=== PATIENT | female | born 1960 | race Asian ===

== ENCOUNTER 2023-12-08 19:12 | Outpatient (REF) | payer OTHER, SELFPAY ==
[2023-12-15 10:09] LABS: Age Gdln ACOG Testing Note (.); HPV Aptima Negative (Negative); IGP, Aptima HPV, rfx 16/18,45 Note (.)
== END 2023-12-08 19:13 | disposition home or self-care (01) ==
LOC: LAB 19:12
PROVIDERS: PCP Family Medicine; Visit Provider Physician Assistant
DX: Z01.419 Encounter for gynecological examination (general) (routine) without abnormal findings (principal)
CPT/HCPCS: 87624; G0145

== ENCOUNTER 2023-12-15 14:02 | Outpatient (OUT) | payer OTHER, SELFPAY ==
--- NOTE | 2023-12-15 14:06 | MM_ITS ---
Patient Name: JAVIER HOOVER MR#: [id number] : 1960 Exam Date: 12/15/2023 Ordering Doctor: DR Abdi Mora . RADIOLOGY REPORT PROCEDURE: MM TOMOSYNTHESIS SCREENING BI COMPARISON: MG MAMM SCREEN 3D ZEINAB CAD, 07/23/2021. MG MAMM SCREEN 3D ZEINAB CAD, 12/02/2022. INDICATIONS: screening Calculator Name NCI Breast Cancer Risk Assessment Tool 5 Year Breast Cancer Risk 0.50% Lifetime Breast Cancer Risk 1.80% Personal Breast Cancer No Personal Ovarian Cancer No Treatments None Family Cancers Mother with ovarian cancer at age 57. LOCATION: [facility] BREAST COMPOSITION: Heterogeneously dense,which may obscure small masses. FINDINGS: DIAGNOSTIC CATEGORY 2--BENIGN FINDING. NO CHANGE FROM COMPARISON. Scattered benign-appearing lymph nodes are present. Scattered benign-appearing calcifications are present. RIGHT BREAST: No significant suspicious finding. LEFT BREAST: No significant suspicious finding. RECOMMENDATIONS: ROUTINE MAMMOGRAM AND CLINICAL EVALUATION IN 12 MONTHS. PLEASE NOTE: A NORMAL MAMMOGRAM DOES NOT EXCLUDE THE POSSIBILITY OF BREAST CANCER. A CLINICALLY SUSPICIOUS PALPABLE LUMP SHOULD BE BIOPSIED. Dictated by: Lio Zuluaga MD on 12/15/2023 at 15:26 Approved by: Lio Zuluaga MD on 12/15/2023 at 15:27
--- OUTSIDE RECORDS SUMMARY | 2023-12-15 14:11 | XMS_ITS | CCD ---
Author Name Unknown Address [address] [place] [address] Organization [facility] Care Team Providers Care Dining Room Supervisor Name Role Phone PERLA ., LEXI Admitting Unavailable PERLA ., LEXI Attending Unavailable DRIFTING, DR BANEGAS Primary Care Unavailable NIC, DR MELISSA Matta Consulting Unavailable PERLA ., LEXI Consulting Unavailable CHRIS, DR BANEGAS Admitting Unavailable HOUSE, DR BANEGAS Attending Unavailable DRIFTING, DR BANEGAS Primary Care Unavailable DRIFTING, DR BANEGAS Consulting Unavailable PERLA ., LEXI Admitting Unavailable PERLA ., LEXI Attending Unavailable DRIFTING, DR BANEAGS Primary Care Unavailable PERLA ., LEXI Consulting Unavailable Sejal Davidson Unavailable LEXI DUNCAN Attending Unavailable Medications Current Medications Medication Drug Class(es) Dates Sig (Normalized) Sig (Original) cefdinir 300 mg oral capsule (1 source) Cephalosporin Antibacterial Start: 07-28-2023 take 1 capsule by mouth every twelve hours Cefdinir 300 MG 1 tablet Orally twice a day for 7 days Jul, Active fluticasone propionate 0.05 mg/actuat metered dose nasal spray (1 source) Corticosteroid Start: 07-28-2023 take 2 spray(s) nasal route once daily Fluticasone Propionate 50 MCG/ACT 2 sprays in each nostril Nasally Once a day for 14 days Jul, Active metFORMIN hydrochloride 500 mg oral tablet (1 source) Biguanide take 1 tablet by mouth twice daily metFORMIN HCl 500 MG TAKE 1 TABLET BY MOUTH TWICE DAILY Oral for 90 Days Active Problems Active Problems Problem Classification Problem Date Documented Date Episodic/Chronic Diabetes mellitus without complication (1 source) Type 2 diabetes mellitus without complications; Translations: [TYPE 2 DM WITHOUT COMPLICATIONS] Onset: 08-12-2022 Chronic Otitis media and related conditions (1 source) Unspecified nonsuppurative otitis media, right ear Episodic Past or Other Problems Problem Classification Problem Date Documented Date Episodic/Chronic Immunizations and screening for infectious disease (1 source) Encounter for screening for human papillomavirus (HPV); Translations: [ENC SCREENING HUMAN PAPILLOMAVIRUS] Onset: 11-27-2022 Episodic Other screening for suspected conditions (not mental disorders or infectious disease) (8 sources) Encounter for screening mammogram for malignant neoplasm of breast; Translations: [Encounter for screening for malignant neoplasm of cervix] Onset: 11-24-2022 Episodic Residual codes; unclassified (1 source) Family history of malignant neoplasm of ovary; Translations: [FAM HX MALIGNANT NEOPLASM OVARY] Onset: 12-03-2022 Episodic Results Test Name Value Interpretation Reference Range Facility MG MAMM SCREEN 3D ZEINAB CADon 12-02-2022 MG MAMM SCREEN 3D ZEINAB CAD Patient: JAVIER HOOVER Exam Date: 12/02/2022 : 1960 Gender:F Ordering : ALEJO DUNCAN . Admission #: [id number] Family : Order #: [id number] CLICK HERE TO VIEW EXAM RADIOLOGY REPORT PROCEDURE: MAMMOGRAM SCREENING 3D BILATERAL CAD COMPARISON: MG MAMM SCREEN 3D ZEINAB CAD, 07/23/2021. MG MAMM SCREEN ZEINAB W CAD, 07/07/2020. MG MAMM SCREEN ZEINAB W CAD, 06/26/2019. MG MAMM ZEINAB SCRN W CAD DIG, 11/22/2011. INDICATIONS: Screening mammography Calculator Name NCI Breast Cancer Risk Assessment Tool 5 Year Breast Cancer Risk 0.50% Lifetime Breast Cancer Risk 1.90% Personal Breast Cancer No Personal Ovarian Cancer No Treatments None Family Cancers Mother with ovarian cancer at age 57. LOCATION: [facility] BREAST COMPOSITION: Heterogeneously dense,which may obscure small masses. FINDINGS: DIAGNOSTIC CATEGORY 2--BENIGN FINDING: RIGHT BREAST: No significant suspicious finding. Stable, chronic asymmetry within lower-inner quadrant consistent with area of fibroglandular tissue. No significant change has occurred. LEFT BREAST: No significant suspicious finding. No significant change has occurred. RECOMMENDATIONS: ROUTINE MAMMOGRAM AND CLINICAL EVALUATION IN 12 MONTHS. PLEASE NOTE: A NORMAL MAMMOGRAM DOES NOT EXCLUDE THE POSSIBILITY OF BREAST CANCER. A CLINICALLY SUSPICIOUS PALPABLE LUMP SHOULD BE BIOPSIED. Dictated by: Melissa Hoffmann M.D. on 12/02/2022 at 13:37 Approved by: Melissa Hoffmann M.D. on 12/02/2022 at 13:41 Normal [facility] PAP ACOG PANEL 2: 30 to 65on 11-26-2022 . . Normal [facility] Comment on above: Result Comment: Perf ormed at: WB Performed By: #### [id number] #### [facility] [address] [place] [address] Dr. Sulma Parsons Age Gdln ACOG Testing 30-65 Normal [facility] Comment on above: Performed By: #### [id number] #### [facility] [address] [address] [address] Sulma Parsons DIAGNOSIS: Comment Normal [facility] Comment on above: Result Comment: NEGA TIVE FOR INTRAEPITHELIAL LESION OR MALIGNANCY. CELLULAR CHANGES ASSOCIATED WITH ATROPHY ARE PRESENT. Performed at: WB Performed By: #### [id number] #### [facility] [address] [address] [address] Sulma Parsons HPV Aptima Negative Normal Negative [facility] Comment on above: Result Comment: This nucleic acid amplification test detects fourteen high-risk HPV types (16,18,31,33,35,39,45,51,52,56,58,59,66,68) without differentiation. Performed at: =G Performed By: #### [id number] #### [facility] [address] [address] [address] Sulma Parsons HPV Genotype Reflex Comment Normal [facility] Comment on above: Result Comment: Crit eria not met, HPV Genotype not performed. Performed at: WB Performed By: #### [id number] #### [facility] [address] [address] [address] Sulma Parsons Methodology: Comment Normal [facility] Comment on above: Result Comment: This liquid based ThinPrep(R) pap test was screened with the use of an image guided system. Performed at: WB Performed By: #### [id number] #### [facility] [address] [place] [address] Dr. Sulma Parsons Note: Comment Normal [facility] Comment on above: Result Comment: The Pap smear is a screening test designed to aid in the detection of premalignant and malignant conditions of the uterine cervix. It is not a diagnostic procedure and should not be used as the sole means of detecting cervical cancer. Both false-positive and false-negative reports do occur. . Performed at: WB Performed By: #### [id number] #### [facility] [address] [place] [address] Dr. Sulma Parsons Performed by: Comment Normal [facility] Comment on above: Result Comment: Tanesha Stauffer, Bulkhead Carpenter (ASCP) Performed at: WB Performed By: #### [id number] #### [facility] [address] [place] [address] Dr. Sulma Parsons Specimen adequacy: Comment Normal [facility] Comment on above: Result Comment: Sati sfactory for evaluation. Endocervical component may not be distinguished in cases of atrophy. Performed at: WB Performed By: #### [id number] #### [facility] [address] [place] [address] Dr. Sulma Parsons CBC AUTO DIFFon 08-10-2022 BASO # 0.0 103/ul Normal 0.0-0.1 [facility] Comment on above: Performed By: #### C BC #### [facility] [address] [place] [address] Dr. Sulma Parsons Basophils/100 WBC (Bld) 0.3 % Normal 0.2-2.0 [facility] Comment on above: Performed By: #### C BC #### [facility] [address] [place] [address] Dr. Sulma Parsons EO # 0.1 103/ul Normal 0.0-0.7 [facility] Comment on above: Performed By: #### C BC #### [facility] [address] [place] [address] Dr. Sulma Parsons Eosinophils/100 WBC (Bld) 1.7 % Normal 0.9-7.0 [facility] Comment on above: Performed By: #### C BC #### [facility] [address] [place] [address] Dr. Sulma Parsons Erythrocyte distribution width (RBC) [Ratio] 14.1 % Normal 11.0-15.0 [facility] Comment on above: Performed By: #### C BC #### [facility] [address] [place] [address] Dr. Sulma Parsons Hematocrit (Bld) [Volume fraction] 38.8 % Normal 36.0-48.0 [facility] Comment on above: Performed By: #### C BC #### [facility] [address] [place] [address] Dr. Sulma Parsons Hemoglobin (Bld) [Mass/Vol] 12.3 g/dL Normal 12.0-16.0 [facility] Comment on above: Performed By: #### C BC #### [facility] [address] [place] [address] Dr. Sulma Parsons IG # 0.02 10e3/ul Normal 0.00-0.03 [facility] Comment on above: Performed By: #### C BC #### [facility] [address] [place] [address] Dr. Sulma Parsons IG % 0.3 % Normal 0.0-0.5 [facility] Comment on above: Performed By: #### C BC #### [facility] [address] [place] [address] Dr. Sulma Parsons LYMPH # 2.7 103/ul Normal 1.2-3.8 [facility] Comment on above: Performed By: #### C BC #### [facility] [address] [place] [address] Dr. Sulma Parsons Lymphocytes/100 WBC (Bld) 45.9 % Normal 20.5-60.0 [facility] Comment on above: Performed By: #### C BC #### [facility] [address] [place] [address] Dr. Sulma aPrsons MANUAL DIFF REQ NO Normal [facility] Comment on above: Performed By: #### C BC #### [facility] [address] [place] [address] Dr. Sulma Parsons MCH (RBC) [Entitic mass] 30.6 pg Normal 26.7-34.0 [facility] Comment on above: Performed By: #### C BC #### [facility] [address] [address] [address] Sulma Parsons MCHC (RBC) [Mass/Vol] 31.7 g/dL Normal 29.9-35.2 [facility] Comment on above: Performed By: #### C BC #### [facility] [address] [address] [address] Sulma Parsons MCV (RBC) [Entitic vol] 96.5 fL Normal 81.0-99.0 [facility] Comment on above: Performed By: #### C BC #### [facility] [address] [address] [address] Sulma Parsons MONO # 0.4 103/ul Normal 0.3-0.8 [facility] Comment on above: Performed By: #### C BC #### [facility] [address] [place] [address] Dr. Sulma Parsons Monocytes/100 WBC (Bld) 6.6 % Normal 1.7-12.0 [facility] Comment on above: Performed By: #### C BC #### [facility] [address] [place] [address] Dr. Sulma Parsons NEUT # 2.7 103/ul Normal 1.4-6.5 [facility] Comment on above: Performed By: #### C BC #### [facility] [address] [place] [address] Dr. Sulma Parsons Neutrophils/100 WBC (Bld) 45.2 % Normal 43.0-75.0 [facility] Comment on above: Performed By: #### C BC #### [facility] [address] [place] [address] Dr. Sulma Parsons Platelet mean volume (Bld) [Entitic vol] 11.9 fL Normal 9.5-13.5 [facility] Comment on above: Performed By: #### C BC #### [facility] [address] [place] [address] Dr. Sulma Parsons PLT 119 103/ul Critically low 150-450 [facility] Comment on above: Performed By: #### C BC #### [facility] [address] [address] [address] Sulma Parsons RBC 4.02 106/ul Critically low 4.20-5.40 [facility] Comment on above: Performed By: #### C BC #### [facility] [address] [address] [address] Sulma Parsons WBC 6.0 103/ul Normal 4.0-11.0 [facility] Comment on above: Performed By: #### C BC #### [facility] [address] [place] [address] Dr. Sulma Parsons GLYCOHEMOGLOBIN A1Con 2021 ADA RECOMMENDATION SEE BELOW Normal [facility] Comment on above: Result Comment: ADA RECOMMENDED LIMIT 4.0 - 6.0 ADA THERAPEUTIC TARGET < 7.0 ACTION SUGGESTED > 7.0 Performed By: #### A 1C #### [facility] [address] [place] [address] Dr. Sulma Parsons Glucose [Mass/Vol] 128 mg/dL Normal [facility] Comment on above: Performed By: #### A 1C #### [facility] [address] [place] [address] Dr. Sulma Parsons HbA1c (Bld) [Mass fraction] 6.1 % Normal 4.5-6.2 [facility] Comment on above: Performed By: #### A 1C #### [facility] [address] [place] [address] Dr. Sulma Parsons LIPID PROFILEon 08-10-2022 CHOL-HDL RATIO NORM SEE BELOW Normal [facility] Comment on above: Result Comment: 3.3 - 4.4 LOW RISK 4.4 - 7.1 AVERAGE RISK 7.1 - 11.0 MODERATE RISK >11.0 HIGH RISK Performed By: #### C MP, LIPID #### [facility] [address] [place] [address] Dr. Sulma Parsons Cholesterol [Mass/Vol] 205 mg/dL Critically high <=200 [facility] Comment on above: Performed By: #### C MP, LIPID #### [facility] [address] [place] [address] Dr. Sulma Parsons Cholesterol in HDL [Mass/Vol] 80 mg/dL Critically high 40-60 [facility] Comment on above: Performed By: #### C MP, LIPID #### [facility] [address] [address] [address] Sulma Parsons Cholesterol in LDL [Mass/Vol] 101.8 mg/dL Normal [facility] Comment on above: Performed By: #### C MP, LIPID #### [facility] [address] [address] [address] Sulma Parsons Cholesterol.total/Cho lesterol in HDL [Mass ratio] 2.6 {ratio} Normal [facility] Comment on above: Performed By: #### C MP, LIPID #### [facility] [address] [place] [address] Dr. Sulma Parsons HDL NORMAL > or = 60 mg/dl - LO W CARDIOVASCULAR RISK <40 mg/dl - HIGH CARDIOVASCULAR RISK Normal [facility] Comment on above: Performed By: #### C MP, LIPID #### [facility] [address] [place] [address] Dr. Sulma Parsons LDL CALC NORMAL SEE BELOW Normal [facility] Comment on above: Result Comment: <100 mg/dl OPTIMAL 100 - 129 mg/dl NEAR OR ABOVE OPTIMAL 130 - 159 mg/dl BORDERLINE HIGH 160 - 189 mg/dl HIGH >190 mg/dl VERY HIGH Performed By: #### C MP, LIPID #### [facility] [address] [address] [address] Sulma Parsons Triglyceride [Mass/Vol] 116 mg/dL Normal <=150 [facility] Comment on above: Performed By: #### C MP, LIPID #### [facility] [address] [address] [address] Sulma Parsons VLDL CALC 23.2 mg/dL Normal [facility] Comment on above: Performed By: #### C MP, LIPID #### [facility] [address] [address] [address] Sulma Parsons MICROALBUMIN, RAND URon 10-0 mALB 3.6 mg/L Normal <=30.0 [facility] Comment on above: Performed By: #### M ALBR #### [facility] [address] [address] [address] Sulma Parsons PROF 14(COMP METB)on 022 Albumin [Mass/Vol] 3.6 g/dL Normal 3.4-5.0 [facility] Comment on above: Performed By: #### C MP, LIPID #### [facility] [address] [place] [address] Dr. Sulma Parsons Albumin/Globulin [Mass ratio] 1.0 {ratio} Normal [facility] Comment on above: Performed By: #### C MP, LIPID #### [facility] [address] [place] [address] Dr. Sulma Parsons ALP [Catalytic activity/Vol] 68 U/L Normal 46-116 [facility] Comment on above: Performed By: #### C MP, LIPID #### [facility] [address] [place] [address] Dr. Sulma Parsons ALT [Catalytic activity/Vol] 20 U/L Normal 14-59 [facility] Comment on above: Performed By: #### C MP, LIPID #### [facility] [address] [place] [address] Dr. Sulma Parsons Anion gap [Moles/Vol] 14.2 mmol/L Normal [facility] Comment on above: Performed By: #### C MP, LIPID #### [facility] [address] [place] [address] Dr. Sulma Parsons AST [Catalytic activity/Vol] 18 U/L Normal 15-37 [facility] Comment on above: Performed By: #### C MP, LIPID #### [facility] [address] [place] [address] Dr. Sulma Parsons Bilirubin [Mass/Vol] 0.4 mg/dL Normal 0.2-1.0 [facility] Comment on above: Performed By: #### C MP, LIPID #### [facility] [address] [place] [address] Dr. Sulma Parsons Calcium [Mass/Vol] 8.6 mg/dL Normal 8.5-10.1 [facility] Comment on above: Performed By: #### C MP, LIPID #### [facility] [address] [address] [address] Sulma Parsons Chloride [Moles/Vol] 103 mmol/L Normal 98-107 [facility] Comment on above: Performed By: #### C MP, LIPID #### [facility] [address] [address] [address] Sulma Parsons CO2 [Moles/Vol] 23.9 mmol/L Normal 21.0-32.0 [facility] Comment on above: Performed By: #### C MP, LIPID #### [facility] [address] [address] [address] Sulma Parsons Creatinine [Mass/Vol] 0.77 mg/dL Normal 0.55-1.02 [facility] Comment on above: Performed By: #### C MP, LIPID #### [facility] [address] [address] [address] Sulma Parsons EGFR-AF BHUTANESE >60 Normal >=60 [facility] Comment on above: Performed By: #### C MP, LIPID #### [facility] [address] [address] [address] Sulma Parsons EGFR-NON AF BHUTANESE >60 Normal >=60 [facility] Comment on above: Performed By: #### C MP, LIPID #### [facility] [address] [address] [address] Sulma Parsons Globulin (S) [Mass/Vol] 3.7 g/dL Normal [facility] Comment on above: Performed By: #### C MP, LIPID #### [facility] [address] [address] [address] Sulma Parsons Glucose [Mass/Vol] 93 mg/dL Normal 74-[address] [facility] Comment on above: Performed By: #### C MP, LIPID #### [facility] [address] [address] [address] Sulma Parsons Potassium [Moles/Vol] 4.1 mmol/L Normal 3.5-5.1 [facility] Comment on above: Performed By: #### C MP, LIPID #### [facility] [address] [address] [address] Sulma Parsons Protein [Mass/Vol] 7.3 g/dL Normal 6.4-8.2 [facility] Comment on above: Performed By: #### C MP, LIPID #### [facility] [address] [address] [address] Sulma Parsons Sodium [Moles/Vol] 137 mmol/L Normal 136-145 [facility] Comment on above: Performed By: #### C MP, LIPID #### [facility] [address] [address] [address] Sulma Parsons Urea nitrogen [Mass/Vol] 19.0 mg/dL Critically high 7.0-18.0 [facility] Comment on above: Performed By: #### C MP, LIPID #### [facility] [address] [address] [address] Sulma Parsons Urea nitrogen/Creatinine [Mass ratio] 24.7 mg/mg Normal [facility] Comment on above: Performed By: #### C MP, LIPID #### [facility] [address] [address] [address] Sulma Parsons Vital Signs Date Time Vital Sign Value Performing Clinician Facility 07-28-2023 09:10-0400 Body height 157.48 cm Sejal Davidson Other [email or web address] Other 07-28-2023 09:10-0400 Body mass index (BMI) [Ratio] 30.32 kg/m2 Sejal Davidson Other [email or web address] Other 07-28-2023 09:10-0400 Body temperature 97.9 [degF] Sejal Davidson Other [email or web address] Other 07-28-2023 09:10-0400 Body weight 75.21 kg Sejal Davidson Other [email or web address] Other 07-28-2023 09:10-0400 Diastolic blood pressure 80 mm[Hg] Sejal Davidson Other [email or web address] Other 07-28-2023 09:10-0400 Respiratory rate 18 /min Sejal Davidson Other [email or web address] Other 07-28-2023 09:10-0400 SaO2% (BldA) [Mass fraction] 98 % Sejal Davidson Other [email or web address] Other 07-28-2023 09:10-0400 Systolic blood pressure 126 mm[Hg] Sejal Davidson Other [email or web address] Other Encounters Encounter Date Encounter Type Care Provider Facility Start: 12-08-2023 End: 12-08-2023 ambulatory LEXI DUNCAN Not Available Start: 07-28-2023 End: 07-28-2023 ambulatory Sejal Davidson Other [email or web address] Other Start: 07-28-2023 Office outpatient ne w 20 minutes Sejal Davidson [facility] Start: 12-02-2022 End: 12-03-2022 ambulatory LEXI DUNCAN . Facility:[facility] Start: 11-24-2022 End: 11-24-2022 ambulatory LEXI DUNCAN . Facility:[facility] Start: 08-12-2022 Encounter for genera l adult medical examination without abnormal findings DR MAKENZIE PEREZ [facility] Start: 08-10-2022 End: 08-11-[address] MAKENZIE PEREZ Facility:[facility] Start: 08-10-2022 End: 08-11-2022 Encounter for general adult medical examination without abnormal findings DR MAKENZIE PEREZ Facility:[facility] Payers Date Payer Category Payer Unknown [id number] 2.16.84 [id number] 1960 Unknown [id number] 2.16.84 [id number] 1960 Unknown [id number] 2.16.84 [id number] 1960 Unknown [id number] 2.16.84 [id number] 1959 Unknown [id number] 1959 Unknown [id number] Social History Date Type Detail Facility Unknown if ever smoked [email or web address] Other Sex Assigned At Sex Assigned At Bir th [email or web address] Other Evaluation note 07-28-2023 Note Date & Type Note Facility 07-28-2023 Evaluation note Encounter Date Diagnosis Assessment Notes Jul, Right otitis media with effusion (ICD-10 - H65.91) Discussed exam and history consistent with otitis media. Will treat with cefdinir. Finish entire course. May use Tylenol and ibuprofen for any discomfort. Discussed other upper respiratory symptoms remain consistent with viral URI. Discussed typical duration 7 to 12 days. May continue symptomatic treatment such as DayQuil/NyQuil, Flonase. Follow-up with PCP in 5 to 6 days for recheck, sooner if significantly worsening symptoms or continuing fever. Patient/Parent verbalized understanding of treatment plan. [email or web address] Other History general Narrative - Reported Note Date & Type Note Facility History general Narrative - Reported Type Medical History diabetic [email or web address] Other Summary Purpose Family History No Family History Records FoundNo Family History Records Found Advance Directives No Advanced Directives Records FoundNo Advanced Directives Records Found Additional Source Comments INFORMATION SOURCE (unrecogn ized section and content) DATE CREATED AUTHOR 03/22/2023 [facility] DATE CREATED AUTHOR AUTHOR'S ORGANIZ ATION 12/09/2023 [facility] EPIC REASON FOR VISIT (unrecogniz ed section and content) EARACHE FOR RECORDS PERTAINING TO PATIENTS WHO ARE OR HAVE BEEN ENROLLED IN A CHEMICAL DEPENDENCY/SUBSTANCEABUSE PROGRAM, SOME INFORMATION MAY BE OMITTED. This clinical summary was aggregated from multiple sources. Caution should be exercised in using it in the provision of clinical care. This summary normalizes information from multiple sources, and as a consequence, information in this document may materially change the coding, format and clinical context of patient data. In addition, data may be omitted in some cases. CLINICAL DECISIONS SHOULD BE BASED ON THE PRIMARY CLINICAL RECORDS. [facility]. provides no warranty or guarantee of the accuracy or completeness of information in this document.
== END 2023-12-15 14:03 | disposition home or self-care (01) ==
LOC: MAMMO 14:03
PROVIDERS: PCP Family Medicine; Visit Provider Obstetrics & Gynecology
DX: Z12.31 Encounter for screening mammogram for malignant neoplasm of breast (principal); Z80.41 Family history of malignant neoplasm of ovary
CPT/HCPCS: 77063; 77067

== ENCOUNTER 2024-12-19 19:34 | Outpatient (REF) | payer OTHER, SELFPAY ==
--- OUTSIDE RECORDS SUMMARY | 2024-12-19 19:36 | XMS_ITS | CCD ---
Author Organization [facility] Care Team Providers Care [employer] Name Role Phone PERLA ., MARTHA Admitting Unavailable PERLA ., MARTHA Attending Unavailable CHRIS, DR BANEGAS Primary Care Unavailable NIC, DR VIGNESH Matta Consulting Unavailable PERLA ., MARTHA Consulting Unavailable CHRIS, DR BANEGAS Admitting Unavailable CHRIS, DR BANEGAS Attending Unavailable HOUSE, DR BANEGAS Primary Care Unavailable HOUSE, DR BANEGAS Consulting Unavailable PERLA ., MARTHA Admitting Unavailable PERLA ., MARTHA Attending Unavailable CHRIS, DR BANEGAS Primary Care Unavailable PERLA ., MARTHA Consulting Unavailable Sejal Davidson Unavailable Uli Redding MD Primary Care Provider ULI REDDING Attending Unavailable MARTHA DUNCAN Attending Unavailable DOTTIE BRIONES Attending Unavailable MONIE NEAL Attending Unavailable KENIA KAUR Attending Unavailable ULI REDDING Attending Unavailable Medications Current Medications Medication Drug Class(es) Dates Sig (Normalized) Sig (Original) Blood Glucose Monitoring Suppl (D-Care Glucometer) w/Device kit (12 sources) Start: 10-04-2023 Blood Glucose Monitoring Suppl (D-Care Glucometer) w/Device kit Indications: Type 2 diabetes mellitus without complication, without long-term current use of insulin ([facility]) 1 Device in the morning. 1 kit 10/04/2023 Active cefdinir 300 mg oral capsule (1 source) Cephalosporin Antibacterial Start: 07-28-2023 take 1 capsule by mouth every twelve hours Cefdinir 300 MG 1 tablet Orally twice a day for 7 days Jul, Active fexofenadine hydrochloride 180 mg oral tablet (12 sources) Histamine-1 Receptor Antagonist Start: 05-24-2023 take 1 tablet by mouth in the morning as needed Allergy Relief 180 MG tablet Take 180 mg by mouth in the morning. PRN. 05/24/2023 Active fluticasone propionate 0.05 mg/actuat metered dose nasal spray (1 source) Corticosteroid Start: 07-28-2023 take 2 spray(s) nasal route once daily Fluticasone Propionate 50 MCG/ACT 2 sprays in each nostril Nasally Once a day for 14 days Jul, Active lisinopril 5 mg oral tablet (5 sources) Angiotensin Converting Enzyme Inhibitor Start: 10-08-2024 End: 10-08-2025 take 1 tablet by mouth once daily lisinopril 5 MG tablet Indications: Primary hypertension (CMS/HCC) Take 1 tablet (5 mg) by mouth Daily 30 tablet 11 10/08/2024 10/08/2025 Active metFORMIN hydrochloride 500 mg oral tablet (11 sources) Biguanide Start: 08-29-2024 End: 08-29-2025 take 1 tablet by mouth in the morning metFORMIN (Glucophage) 500 MG tablet Indications: Type 2 diabetes mellitus without complication, without long-term current use of insulin (CMS/HCC) Take 1 tablet (500 mg) by mouth in the morning and 1 tablet (500 mg) in the evening. Take with meals. 60 tablet 11 08/29/2024 10/08/2024 Discontinued (Side effects) Start: 05-16-2024 End: 05-16-2025 take 1 tablet by mouth every twenty-four hours at mealtime metFORMIN XR (Glucophage-XR) 500 MG 24 hr tablet Indications: Insulin resistance Take 1 tablet (500 mg) by mouth in the evening. Take with meals Do not crush, chew, or split. 360 tablet 05/16/2024 08/29/2024 Discontinued (Dose adjustment) take 1 tablet by michael th twice daily metFORMIN HCl 500 MG TAKE 1 TABLET BY MOUTH TWICE DAILY Oral for 90 Days Active Semaglutide,0.25 or 0.5MG/DO S, (Ozempic, 0.25 or 0.5 MG/DOSE,) 2 MG/3ML solution pen-injector (5 sources) Start: 10-09-2024 Semaglutide,0. 25 or 0.5MG/DOS, (Ozempic, 0.25 or 0.5 MG/DOSE,) 2 MG/3ML solution pen-injector Indications: Type 2 diabetes mellitus without complication, without long-term current use of insulin (CMS/HCC) Inject 0.5 mg under the skin 1 (one) time per week 3 mL 11 10/09/2024 Active Start: 10-08-2024 Semaglutide,0. 25 or 0.5MG/DOS, (Ozempic, 0.25 or 0.5 MG/DOSE,) 2 MG/3ML solution pen-injector Indications: Type 2 diabetes mellitus without complication, without long-term current use of insulin (CMS/HCC) Inject 0.5 mg under the skin 1 (one) time per week 3 mL 11 10/08/2024 Active Completed/Discontinued Medications Medication Drug Class(es) Dates Sig (Normalized) Sig (Original) empagliflozin 10 mg oral tablet (11 sources) Sodium-Glucose Cotransporter 2 Inhibitor Start: End: take 1 tablet by mouth once daily empagliflozin (Jardiance) 10 MG Indications: Type 2 diabetes mellitus without complication, without long-term current use of insulin (CMS/HCC) Take 1 tablet (10 mg) by mouth Daily 30 tablet 11 08/16/2024 11/28/2024 Discontinued hydroCHLOROthiazide 25 mg oral tablet (3 sources) Thiazide Diuretic End: hydroCHLOROthiazide (HYDRODiuril) 25 MG tablet 1 (one) time each day at the same time. 08/16/2024 Discontinued mometasone furoate 1 mg/ml topical cream (3 sources) Corticosteroid Start: End: mometasone (Elocon) 0.1 % cream Indications: Dermatitis Apply topically Daily 15 g 2 12/28/2023 08/16/2024 Discontinued pantoprazole 40 mg delayed release oral tablet (3 sources) Proton Pump Inhibitor Start: End: take 1 tablet by mouth once daily as needed for gastroesophageal reflux disease pantoprazole (Protonix) 40 MG EC tablet Indications: Gastroesophageal reflux disease without esophagitis Take 1 tablet (40 mg) by mouth Daily as needed (Reflux) Do not crush, chew, or split. 30 tablet 2 12/28/2023 08/16/2024 Discontinued Problems Active Problems Problem Classification Problem Date Documented Date Episodic/Chronic Anxiety disorders (12 sources) Anxiety; Translations: [Anxiety disorder, unspecified] Onset: 08-01-2023 08-01-2023 Chronic Diabetes mellitus with complications (4 sources) Type 2 diabetes mellitus; Translations: [Type 2 diabetes mellitus with other specified complication] 08-16-2024 Chronic Diabetes mellitus without complication (20 sources) Type 2 diabetes mellitus without complications; Translations: [Type 2 diabetes mellitus without complication] Onset: 08-12-2022 08-01-2023 Chronic Disorders of lipid metabolism (4 sources) Hyperlipidemia; Translations: [Hyperlipidemia, unspecified] 08-16-2024 Chronic Esophageal disorders (12 sources) Gastroesophageal reflux disease without esophagitis; Translations: [Gastro-esophageal reflux disease without esophagitis] Onset: 12-28-2023 12-28-2023 Chronic Essential hypertension (9 sources) Essential hypertension; Translations: [Essential (primary) hypertension] Onset: 10-08-2024 10-08-2024 Chronic Other and unspecified benign neoplasm (2 sources) Dermatofibroma; Translations: [Other benign neoplasm of skin, unspecified] 09-20-2024 Episodic Other and unspecified benign neoplasm (2 sources) Melanocytic nevus of trunk; Translations: [Melanocytic nevi of trunk] 09-20-2024 Episodic Other nutritional; endocrine; and metabolic disorders (1 source) Insulin resistance; Translations: [Insulin resistance] 08-29-2024 Chronic Other skin disorders (2 sources) Lesion of skin of face; Translations: [Disorder of the skin and subcutaneous tissue, unspecified] 08-16-2024 Episodic Other skin disorders (2 sources) Mass of skin of right lower limb; Translations: [Disorder of the skin and subcutaneous tissue, unspecified] 08-16-2024 Episodic Other skin disorders (2 sources) Inflamed seborrheic keratosis; Translations: [Inflamed seborrheic keratosis] 09-20-2024 Episodic Other upper respiratory disease (12 sources) Allergic rhinitis due to pollen; Translations: [Allergic rhinitis due to pollen] Onset: 12-28-2023 12-28-2023 Chronic Otitis media and related conditions (1 source) Unspecified nonsuppurative otitis media, right ear Episodic Past or Other Problems Problem Classification Problem Date Documented Date Episodic/Chronic Immunizations and screening for infectious disease (1 source) Encounter for screening for human papillomavirus (HPV); Translations: [ENC SCREENING HUMAN PAPILLOMAVIRUS] Onset: 11-27-2022 Episodic Other connective tissue disease (12 sources) Muscle pain; Translations: [Myalgia, unspecified site] Onset: 12-13-2023 12-13-2023 Episodic Other screening for suspected conditions (not mental disorders or infectious disease) (8 sources) Encounter for screening mammogram for malignant neoplasm of breast; Translations: [Encounter for screening for malignant neoplasm of cervix] Onset: 11-24-2022 Episodic Residual codes; unclassified (1 source) Family history of malignant neoplasm of ovary; Translations: [FAM HX MALIGNANT NEOPLASM OVARY] Onset: 12-03-2022 Episodic Residual codes; unclassified (12 sources) Flushing; Translations: [Flushing] Onset: 08-01-2023 08-01-2023 Episodic Results Test Name Value Interpretation Reference Range Facility No Panel InformationOrdered By: Eneida Lozoya on 09-20-2024 [facility] - Hematology [facility] Cell count[facility] 08-16-2024 HbA1c (Bld) [Mass fraction] 6.1 % [facility] No Panel Informationon 08-16 [facility] MG MAMM SCREEN 3D ZEINAB CADon 12-02-2022 MG MAMM SCREEN 3D ZEINAB CAD Patient: JAVIER HOOVER Exam Date: 12/02/2022 : 1960 Gender:F Ordering : ALEJO DUNCAN . Admission #: [id number] Family : Order #: [id number] CLICK HERE TO VIEW EXAM RADIOLOGY REPORT [...] ovarian cancer at age 57. LOCATION: [facility] BREAST COMPOSITION: Heterogeneously dense,which may obscure [...] PALPABLE LUMP SHOULD BE BIOPSIED. Dictated by: Vignesh Hoffmann M.D. on 12/02/2022 at 13:37 Approved by: Vignesh Hoffmann M.D. on 12/02/2022 at 13:41 Normal [facility] PAP ACOG PANEL 2: 30 to 65on 11-26-2022 . . Normal [facility] Comment on above: Result Comment: Perf ormed at: WB Performed By: #### [id number] #### [facility] [address] [address] [address] Sulma Parsons Age Gdln ACOG Testing 30-65 Normal [facility] Comment on above: Performed By: #### [id number] #### [facility] [address] [address] [address] Sulma Parsons DIAGNOSIS: Comment Normal [facility] Comment on above: Result Comment: NEGA TIVE FOR INTRAEPITHELIAL LESION OR MALIGNANCY. CELLULAR CHANGES ASSOCIATED WITH ATROPHY ARE PRESENT. Performed at: WB Performed By: #### [id number] #### [facility] [address] [address] [address] Sulma Parsons HPV Aptima Negative Normal Negative [facility] Comment on above: Result Comment: This nucleic acid amplification test detects fourteen high-risk HPV types (16,18,31,33,35,39,45,51,52,56,58,59,66,68) without differentiation. Performed at: =G Performed By: #### [id number] #### [facility] [address] [address] [address] Sulma Parsons HPV Genotype Reflex Comment Normal [facility] Comment on above: Result Comment: Crit eria not met, HPV Genotype not performed. Performed at: WB Performed By: #### [id number] #### [facility] [address] [address] [address] Sulma Parsons Methodology: Comment Normal [facility] Comment on above: Result Comment: This liquid based ThinPrep(R) pap test was screened with the use of an image guided system. Performed at: WB Performed By: #### [id number] #### [facility] [address] [place] [address] Dr. Sulma Parsons Note: Comment Normal [facility] Comment on above: Result Comment: The Pap smear is a screening test designed to aid in the detection of premalignant and malignant conditions of the uterine cervix. It is not a diagnostic procedure and should not be used as the sole means of detecting cervical cancer. Both false-positive and false-negative reports do occur. . Performed at: WB Performed By: #### [id number] #### [facility] [address] [place] [address] Dr. Sulma Parsons Performed by: Comment Normal [facility] Comment on above: Result Comment: Tanesha Stauffer, Director Ehs (ASCP) Performed at: WB Performed By: #### [id number] #### [facility] [address] [place] [address] Dr. Sulma Parsons Specimen adequacy: Comment Normal [facility] Comment on above: Result Comment: Sati sfactory for evaluation. Endocervical component may not be distinguished in cases of atrophy. Performed at: WB Performed By: #### [id number] #### [facility] [address] [place] [address] Dr. Sulma Parsons CBC AUTO DIFFon 08-10-2022 BASO # 0.0 103/ul Normal 0.0-0.1 [facility] Comment on above: Performed By: #### C BC #### [facility] [address] [place] [address] Dr. Sulma Parsons Basophils/100 WBC (Bld) 0.3 % Normal 0.2-2.0 [facility] Comment on above: Performed By: #### C BC #### [facility] [address] [place] [address] Dr. Sulma Parsons EO # 0.1 103/ul Normal 0.0-0.7 [facility] Comment on above: Performed By: #### C BC #### [facility] [address] [place] [address] Dr. Sulma Parsons Eosinophils/100 WBC (Bld) 1.7 % Normal 0.9-7.0 [facility] Comment on above: Performed By: #### C BC #### [facility] [address] [place] [address] Dr. Sulma Parsons Erythrocyte distribution width (RBC) [Ratio] 14.1 % Normal 11.0-15.0 [facility] Comment on above: Performed By: #### C BC #### [facility] [address] [place] [address] Dr. Sulma Parsons Hematocrit (Bld) [Volume fraction] 38.8 % Normal 36.0-48.0 [facility] Comment on above: Performed By: #### C BC #### [facility] [address] [place] [address] Dr. Sulma Parsons Hemoglobin (Bld) [Mass/Vol] 12.3 g/dL Normal 12.0-16.0 [facility] Comment on above: Performed By: #### C BC #### [facility] [address] [place] [address] Dr. Sulma Parsons IG # 0.02 10e3/ul Normal 0.00-0.03 [facility] Comment on above: Performed By: #### C BC #### [facility] [address] [place] [address] Dr. Sulma Parsons IG % 0.3 % Normal 0.0-0.5 [facility] Comment on above: Performed By: #### C BC #### [facility] [address] [place] [address] Dr. Sulma Parsons LYMPH # 2.7 103/ul Normal 1.2-3.8 [facility] Comment on above: Performed By: #### C BC #### [facility] [address] [place] [address] Dr. Sulma Parsons Lymphocytes/100 WBC (Bld) 45.9 % Normal 20.5-60.0 [facility] Comment on above: Performed By: #### C BC #### [facility] [address] [place] [address] Dr. Sulma Parsons MANUAL DIFF REQ NO Normal [facility] Comment on above: Performed By: #### C BC #### [facility] [address] [place] [address] Dr. Sulma Parsons MCH (RBC) [Entitic mass] 30.6 pg Normal 26.7-34.0 [facility] Comment on above: Performed By: #### C BC #### [facility] [address] [place] [address] Dr. Sulma Parsons MCHC (RBC) [Mass/Vol] 31.7 g/dL Normal 29.9-35.2 [facility] Comment on above: Performed By: #### C BC #### [facility] [address] [place] [address] Dr. Sulma Parsons MCV (RBC) [Entitic vol] 96.5 fL Normal 81.0-99.0 [facility] Comment on above: Performed By: #### C BC #### [facility] [address] [place] [address] Dr. Sulma Parsons MONO # 0.4 103/ul Normal 0.3-0.8 [facility] Comment on above: Performed By: #### C BC #### [facility] [address] [place] [address] Dr. Sulma Parsons Monocytes/100 WBC (Bld) 6.6 % Normal 1.7-12.0 [facility] Comment on above: Performed By: #### C BC #### [facility] [address] [place] [address] Dr. Sulma Parsons NEUT # 2.7 103/ul Normal 1.4-6.5 [facility] Comment on above: Performed By: #### C BC #### [facility] [address] [place] [address] Dr. Sulma Parsons Neutrophils/100 WBC (Bld) 45.2 % Normal 43.0-75.0 [facility] Comment on above: Performed By: #### C BC #### [facility] [address] [place] [address] Dr. Sulma Parsons Platelet mean volume (Bld) [Entitic vol] 11.9 fL Normal 9.5-13.5 [facility] Comment on above: Performed By: #### C BC #### [facility] [address] [place] [address] Dr. Sulma Parsons PLT 119 103/ul Critically low 150-450 [facility] Comment on above: Performed By: #### C BC #### [facility] [address] [address] [address] Sulma Parsons RBC 4.02 106/ul Critically low 4.20-5.40 [facility] Comment on above: Performed By: #### C BC #### [facility] [address] [place] [address] Dr. Sulma Parsons WBC 6.0 103/ul Normal 4.0-11.0 [facility] Comment on above: Performed By: #### C BC #### [facility] [address] [place] [address] Dr. Sulma Parsons GLYCOHEMOGLOBIN A1Con 2021 ADA RECOMMENDATION SEE BELOW Normal [facility] Comment on above: Result Comment: ADA RECOMMENDED LIMIT 4.0 - 6.0 ADA THERAPEUTIC TARGET < 7.0 ACTION SUGGESTED > 7.0 Performed By: #### A 1C #### [facility] [address] [place] [address] Dr. Sulma Parsons Glucose [Mass/Vol] 128 mg/dL Normal [facility] Comment on above: Performed By: #### A 1C #### [facility] [address] [place] [address] Dr. Sulma Parsons HbA1c (Bld) [Mass fraction] 6.1 % Normal 4.5-6.2 [facility] Comment on above: Performed By: #### A 1C #### [facility] [address] [place] [address] Dr. Sulma Parsons LIPID PROFILEon 08-10-2022 CHOL-HDL RATIO NORM SEE BELOW Normal [facility] Comment on above: Result Comment: 3.3 - 4.4 LOW RISK 4.4 - 7.1 AVERAGE RISK 7.1 - 11.0 MODERATE RISK >11.0 HIGH RISK Performed By: #### C MP, LIPID #### [facility] [address] [address] [address] Sulma Parsons Cholesterol [Mass/Vol] 205 mg/dL Critically high <=200 [facility] Comment on above: Performed By: #### C MP, LIPID #### [facility] [address] [address] [address] Sulma Parsons Cholesterol in HDL [Mass/Vol] 80 mg/dL Critically high 40-60 [facility] Comment on above: Performed By: #### C MP, LIPID #### [facility] [address] [address] [address] Sulma Parsons Cholesterol in LDL [Mass/Vol] 101.8 mg/dL Normal [facility] Comment on above: Performed By: #### C MP, LIPID #### [facility] [address] [place] [address] Dr. Sulma Parsons Cholesterol.total/Chol esterol in HDL [Mass ratio] 2.6 {ratio} Normal [facility] Comment on above: Performed By: #### C MP, LIPID #### [facility] [address] [place] [address] Dr. Sulma Parsons HDL NORMAL > or = 60 mg/dl - LOW CARDIOVASCULAR RISK <40 mg/dl - HIGH CARDIOVASCULAR RISK Normal [facility] Comment on above: Performed By: #### C MP, LIPID #### [facility] [address] [address] [address] Sulma Parsons LDL CALC NORMAL SEE BELOW Normal [facility] Comment on above: Result Comment: <100 mg/dl OPTIMAL 100 - 129 mg/dl NEAR OR ABOVE OPTIMAL 130 - 159 mg/dl BORDERLINE HIGH 160 - 189 mg/dl HIGH >190 mg/dl VERY HIGH Performed By: #### C MP, LIPID #### [facility] [address] [address] [address] Sulma Parsons Triglyceride [Mass/Vol] 116 mg/dL Normal <=150 [facility] Comment on above: Performed By: #### C MP, LIPID #### [facility] [address] [place] [address] Dr. Sulma Parsons VLDL CALC 23.2 mg/dL Normal [facility] Comment on above: Performed By: #### C MP, LIPID #### [facility] [address] [place] [address] Dr. Sulma Parsons MICROALBUMIN, RAND URon mALB 3.6 mg/L Normal <=30.0 [facility] Comment on above: Performed By: #### M ALBR #### [facility] [address] [place] [address] Dr. Sulma Parsons PROF 14(COMP METB)on 022 Albumin [Mass/Vol] 3.6 g/dL Normal 3.4-5.0 [facility] Comment on above: Performed By: #### C MP, LIPID #### [facility] [address] [place] [address] Dr. Sulma Parsons Albumin/Globulin [Mass ratio] 1.0 {ratio} Normal [facility] Comment on above: Performed By: #### C MP, LIPID #### [facility] [address] [place] [address] Dr. Sulma Parsons ALP [Catalytic activity/Vol] 68 U/L Normal 46-116 [facility] Comment on above: Performed By: #### C MP, LIPID #### [facility] [address] [place] [address] Dr. Sulma Parsons ALT [Catalytic activity/Vol] 20 U/L Normal 14-59 [facility] Comment on above: Performed By: #### C MP, LIPID #### [facility] [address] [place] [address] Dr. Sulma Parsons Anion gap [Moles/Vol] 14.2 mmol/L Normal [facility] Comment on above: Performed By: #### C MP, LIPID #### [facility] [address] [place] [address] Dr. Sulma Parsons AST [Catalytic activity/Vol] 18 U/L Normal 15-37 [facility] Comment on above: Performed By: #### C MP, LIPID #### [facility] [address] [place] [address] Dr. Sulma Parsons Bilirubin [Mass/Vol] 0.4 mg/dL Normal 0.2-1.0 [facility] Comment on above: Performed By: #### C MP, LIPID #### [facility] [address] [place] [address] Dr. Sulma Parsons Calcium [Mass/Vol] 8.6 mg/dL Normal 8.5-10.1 [facility] Comment on above: Performed By: #### C MP, LIPID #### [facility] [address] [place] [address] Dr. Sulma Parsons Chloride [Moles/Vol] 103 mmol/L Normal 98-107 [facility] Comment on above: Performed By: #### C MP, LIPID #### [facility] [address] [place] [address] Dr. Sulma Parsons CO2 [Moles/Vol] 23.9 mmol/L Normal 21.0-32.0 [facility] Comment on above: Performed By: #### C MP, LIPID #### [facility] [address] [place] [address] Dr. Sulma Parsons Creatinine [Mass/Vol] 0.77 mg/dL Normal 0.55-1.02 [facility] Comment on above: Performed By: #### C MP, LIPID #### [facility] [address] [place] [address] Dr. Sulma Parsons EGFR-AF ARMENIAN >60 Normal >=60 [facility] Comment on above: Performed By: #### C MP, LIPID #### [facility] [address] [place] [address] Dr. Sulma Parsons EGFR-NON AF ARMENIAN >60 Normal >=60 [facility] Comment on above: Performed By: #### C MP, LIPID #### [facility] [address] [place] [address] Dr. Sulma Parsons Globulin (S) [Mass/Vol] 3.7 g/dL Normal [facility] Comment on above: Performed By: #### C MP, LIPID #### [facility] [address] [place] [address] Dr. Sulma Parsons Glucose [Mass/Vol] 93 mg/dL Normal 74-106 [facility] Comment on above: Performed By: #### C MP, LIPID #### [facility] [address] [place] [address] Dr. Sulma Parsons Potassium [Moles/Vol] 4.1 mmol/L Normal 3.5-5.1 [facility] Comment on above: Performed By: #### C MP, LIPID #### [facility] [address] [place] [address] Dr. Sulma Parsons Protein [Mass/Vol] 7.3 g/dL Normal 6.4-8.2 [facility] Comment on above: Performed By: #### C MP, LIPID #### [facility] [address] [place] [address] Dr. Sulma Parsons Sodium [Moles/Vol] 137 mmol/L Normal 136-145 [facility] Comment on above: Performed By: #### C MP, LIPID #### [facility] [address] [place] [address] Dr. Sulma Parsons Urea nitrogen [Mass/Vol] 19.0 mg/dL Critically high 7.0-18.0 [facility] Comment on above: Performed By: #### C MP, LIPID #### [facility] [address] [place] [address] Dr. Sulma Parsons Urea nitrogen/Creatinine [Mass ratio] 24.7 mg/mg Normal [facility] Comment on above: Performed By: #### C MP, LIPID #### [facility] [address] [place] [address] Dr. Sulma Parsons Vital Signs Date Time Vital Sign Value Performing Clinician Facility 11-28-2024 10:30-0500 Body height 157.5 cm Uli Redding MD Work Phone: [facility] 11-28-2024 10:30-0500 Body mass index (BMI) [Ratio] 29.81 kg/m2 Uil Redding MD Work Phone: [facility] 11-28-2024 10:30-0500 Body weight 73.94 kg Uli Redding MD Work Phone: [facility] 11-28-2024 10:30-0500 Diastolic blood pressure 80 mm[Hg] Uli Redding MD Work Phone: [facility] 11-28-2024 10:30-0500 Heart rate 75 /min Uli Redding MD Work Phone: [facility] 11-28-2024 10:30-0500 SaO2% (BldA) [Mass fraction] 97 % Uli Redding MD Work Phone: [facility] 11-28-2024 10:30-0500 Systolic blood pressure 130 mm[Hg] Uli Redding MD Work Phone: [facility] 10-08-2024 10:44-0500 Body mass index (BMI) [Ratio] 30.91 kg/m2 Uli Redding MD Work Phone: [facility] 10-08-2024 10:44-0500 Body weight 76.66 kg Uli Redding MD Work Phone: [facility] 10-08-2024 10:44-0500 Diastolic blood pressure 85 mm[Hg] Uli Redding MD Work Phone: [facility] 10-08-2024 10:44-0500 Heart rate 81 /min Uli Redding MD Work Phone: [facility] 10-08-2024 10:44-0500 Respiratory rate 17 /min Uli Redding MD Work Phone: [facility] 10-08-2024 10:44-0500 SaO2% (BldA) [Mass fraction] 97 % Uli Redding MD Work Phone: [facility] 10-08-2024 10:44-0500 Systolic blood pressure 145 mm[Hg] Uli Redding MD Work Phone: [facility] 08-16-2024 13:49-0400 Body height 157.5 cm Monie Neal CORRECTIONAL MAINTENANCE TECHNICIAN Work Phone: [facility] 08-16-2024 13:49-0400 Body mass index (BMI) [Ratio] 30.54 kg/m2 Monie Neal CORRECTIONAL MAINTENANCE TECHNICIAN Work Phone: [facility] 08-16-2024 13:49-0400 Body weight 75.75 kg Monie Neal CORRECTIONAL MAINTENANCE TECHNICIAN Work Phone: [facility] 08-16-2024 13:49-0400 Diastolic blood pressure 82 mm[Hg] Monie Neal CORRECTIONAL MAINTENANCE TECHNICIAN Work Phone: [facility] 08-16-2024 13:49-0400 Heart rate 73 /min Monie Neal CORRECTIONAL MAINTENANCE TECHNICIAN Work Phone: [facility] 08-16-2024 13:49-0400 SaO2% (BldA) [Mass fraction] 97 % Monie Neal CORRECTIONAL MAINTENANCE TECHNICIAN Work Phone: [facility] 08-16-2024 13:49-0400 Systolic blood pressure 130 mm[Hg] Monie Neal CORRECTIONAL MAINTENANCE TECHNICIAN Work Phone: [facility] 07-28-2023 09:10-0400 Body height 157.48 cm Sejal Davidson Other [employer] Other 07-28-2023 09:10-0400 Body mass index (BMI) [Ratio] 30.32 kg/m2 Sejal Davidson Other [employer] Other 07-28-2023 09:10-0400 Body temperature 97.9 [degF] Sejal Davidson Other [employer] Other 07-28-2023 09:10-0400 Body weight 75.21 kg Sejal Davidson Other [employer] Other 07-28-2023 09:10-0400 Diastolic blood pressure 80 mm[Hg] Sejal Davidson Other [employer] Other 07-28-2023 09:10-0400 Respiratory rate 18 /min Sejal Davidson Other [employer] Other 07-28-2023 09:10-0400 SaO2% (BldA) [Mass fraction] 98 % Sejal Davidson Other [employer] Other 07-28-2023 09:10-0400 Systolic blood pressure 126 mm[Hg] Sejal Davidson Other [employer] Other Encounters Encounter Date Encounter Type Care Provider Facility Start: 11-28-2024 End: 11-28-2024 dougho flowsheet Uli Redding MD Work Phone: [facility] Start: 11-28-2024 End: 11-28-2024 dougho flowsheet Uli Redding MD Work Phone: [facility] Start: 11-28-2024 End: 11-28-2024 Office outpatient visit 15 minutes Uli Redding MD Work Phone: [facility] Comment on above: Type 2 diabetes fred itus without complication, without long- term current use of insulin (CMS/HCC) (Primary Dx); Primary hypertension (CMS/HCC); Type 2 diabetes mellitus with other specified complication (CMS/HCC); Hyperlipidemia, unspecified (CMS/HCC) Start: 11-28-2024 End: 11-28-2024 ambulatory ULI REDDING Not Available Start: 10-08-2024 End: 10-08-2024 Office outpatient visit 25 minutes Uli Redding MD Work Phone: [facility] Comment on above: Type 2 diabetes fred itus without complication, without long- term current use of insulin (CMS/HCC) (Primary Dx); Primary hypertension (CMS/HCC) Start: 10-08-2024 End: 10-08-2024 ambulatory ULI REDDING Not Available Start: 09-20-2024 End: 09-20-2024 Office outpatient new 20 minutes Kenia Kaur MD Work Phone: [facility] Comment on above: Melanocytic nevus of trunk (Primary Dx); Dermatofibroma; Seborrheic keratosis, inflamed Start: 09-20-2024 End: 09-20-2024 ambulatory KENIA KAUR Not Available Start: 09-20-2024 End: 09-20-2024 Bamboo flowsheet Kenia Kaur MD Work Phone: [facility] Start: 09-20-2024 End: 09-20-2024 Bamboo flowsheet Kenia Kaur MD Work Phone: [facility] Start: 08-22-2024 End: 08-29-2024 Telephone encounter Uli Redding MD Work Phone: [facility] Start: 08-16-2024 End: 08-16-2024 Bamboo flowsheet Monie Neal CORRECTIONAL MAINTENANCE TECHNICIAN Work Phone: [facility] Start: 08-16-2024 End: 08-16-2024 Bamboo flowsheet Monie Neal CORRECTIONAL MAINTENANCE TECHNICIAN Work Phone: [facility] Start: 08-16-2024 End: 08-16-2024 Office outpatient visit 15 minutes Monie Neal CORRECTIONAL MAINTENANCE TECHNICIAN Work Phone: [facility] Comment on above: Skin lesion of face (Primary Dx); Type 2 diabetes mellitus without complication, without long-term current use of insulin (CMS/HCC); Skin lesion of right leg; Type 2 diabetes mellitus with other specified complication (CMS/HCC); Hyperlipidemia, unspecified (CMS/HCC) Start: 08-16-2024 End: 08-16-2024 ambulatory MONIE NEAL Not Available Start: 12-28-2023 End: 12-28-2023 ambulatory DOTTIE BRIONES Not Available Start: 12-08-2023 End: 12-08-2023 ambulatory MARTHA DUNCAN Not Available Start: 07-28-2023 End: 07-28-2023 ambulatory Sejal Davidson Other [employer] Other Start: 07-28-2023 Office outpatient ne w 20 minutes Sejal Davidson [facility] [place] Start: 12-02-2022 End: 12-03-2022 ambulatory MARTHA DUNCAN . Facility: Start: 11-24-2022 End: 11-24-2022 ambulatory MARTHA DUNCAN . Facility:[facility] Start: 08-12-2022 Encounter for genera l adult medical examination without abnormal findings DR MAKENZIE PEREZ [facility] Start: 08-10-2022 End: 08-11-[address] MAKENZIE PEREZ Facility:[facility] Start: 08-10-2022 End: 08-11-2022 Encounter for general adult medical examination without abnormal findings DR MAKENZIE PEREZ Facility:[facility] Procedures Date Procedure Procedure Detail Performing Clinician Start: 09-20-2024 CRYOTHERAPY SKIN LESION Kenia Kaur MD Work Phone: Start: 08-16-2024 Hemoglobin glycosyla juliana a1c Uli Redding MD Work Phone: Start: 12-21-2023 Mammography Monie Neal NP Work Phone: Start: 05-23-2023 Microscopic observat ion [Identifier] in Cervix by Cyto stain Monie Neal NP Work Phone: Plan of Treatment Date Care Activity Detail Author Start: 05-23-2028 Screening for malign ant neoplasm of cervix [facility] Start: 08-17-2025 Urine screening for protein Diabetes: Urine Protein Screening [facility] Start: 02-27-2025 End: 02-27-2025 Patient encounter procedure 02/27/2025 10:30 AM EDT Office Visit [facility] [address] [facility] [address] [place] [address] Uli Redding MD [address] [facility] [address] [place] [address] [facility] Start: 02-26-2025 Hemoglobin A1c measurement Diabetes: Hemoglobin A1C [facility] Start: 12-21-2024 Screening for malign ant neoplasm of breast Mammogram [facility] Start: 12-19-2024 End: 12-19-2024 Patient encounter procedure 12/19/2024 11:00 AM EST Office Visit [facility] [address] [place] [phone] Martha Duncan, [place] [address] [place] [address] [facility] Start: 11-28-2024 End: 11-28-2024 Patient encounter procedure 11/28/2024 10:30 AM EST Office Visit [facility] [address] [facility] [place] [address] Uli Redding MD [address] [place] [address] Arrived [facility] Comment on above: Arrived Start: 11-21-2024 End: 11-21-2024 Patient encounter procedure 11/21/2024 1:00 PM EST Office Visit [facility] [address] [place] [address] Monie Neal, CORRECTIONAL MAINTENANCE TECHNICIAN [address] [place] [address] [facility] Start: 11-16-2024 Hemoglobin A1c measurement Diabetes: Hemoglobin A1C [facility] Start: 09-20-2024 End: 09-20-2024 Patient encounter procedure 09/20/2024 2:50 PM EST Office Visit [facility] [address] [place] [id number] Kenia Kaur MD [address] [place] [address] [facility] Start: 09-02-2024 Urine screening for protein Diabetes: Urine Protein Screening [facility] Start: 08-16-2024 End: 08-16-2025 Comprehensive metabolic 2000 panel - Serum or Plasma Comprehensive metabolic panel Lab Routine Type 2 diabetes mellitus without complication, without long-term current use of insulin (CMS/HCC) Expected: 08/16/2024 (Approximate), Expires: 08/16/2025 [facility] Work Phone: Comment on above: Expected: 08/16/2024 (Approximate), Expires: 08/16/2025 Start: 08-16-2024 End: 08-16-2025 Lipid 1996 panel - Serum or Plasma Lipid panel Lab Routine Type 2 diabetes mellitus without complication, without long-term current use of insulin (CMS/HCC) Expected: 08/16/2024 (Approximate), Expires: 08/16/2025 [facility] Comment on above: Expected: 08/16/2024 (Approximate), Expires: 08/16/2025 Start: 08-16-2024 End: 08-16-2025 Microalbumin/Creatinine panel in random Urine Microalbumin / creatinine, urine ratio Lab Routine Type 2 diabetes mellitus without complication, without long-term current use of insulin ([facility]) Expected: 08/16/2024 (Approximate), Expires: 08/16/2025 [facility] Comment on above: Expected: 08/16/2024 (Approximate), Expires: 08/16/2025 Start: 08-16-2024 End: 08-16-2024 Patient encounter procedure 08/16/2024 2:00 PM EDT Office Visit [facility] [address] [place] [id number] Monie Neal, SHERRY [address] [facility] [address] [place] [address] Arrived [facility] Comment on above: Arrived Start: 07-08-2024 Influenza vaccination Influenza Vacc ine (#1) [facility] Start: 10-31-2023 Hemoglobin A1c measurement Diabetes: Hemoglobin A1C [facility] Start: 1970 Glaucoma screening Diabetes: R etinopathy Screening [facility] Start: 1960 Screening for malign ant neoplasm of colon [facility] Immunizations Immunization Date Immunization Notes Care Provider Fa cili 09-29-2024 influenza, seasonal, injectable, preservative free Uli Redding MD Work Phone: [facility] 10-18-2023 Influenza, injectabl e, Madin [place] Canine Kidney, preservative free, quadrivalent Uli Redding MD Work Phone: [facility] 10-18-2023 influenza virus vacc ine, unspecified formulation Monie Neal CORRECTIONAL MAINTENANCE TECHNICIAN Work Phone: [facility] 09-12-2022 Influenza, injectabl e, Madin [place] Canine Kidney, preservative free, quadrivalent Monie Neal CORRECTIONAL MAINTENANCE TECHNICIAN Work Phone: [facility] 09-01-2022 SARS-COV-2 (COVID-19 ) vaccine, mRNA, spike protein, LNP, bivalent, preservative free, 30 mcg/0.3 mL dose, nely-sucrose formulation Monie Neal CORRECTIONAL MAINTENANCE TECHNICIAN Work Phone: [facility] 02-07-2022 Pfizer Bennett Cap SARS-CoV-2 Vaccination Monie Neal CORRECTIONAL MAINTENANCE TECHNICIAN Work Phone: [facility] 09-24-2021 influenza, injectabl e, quadrivalent, preservative free Monie Neal CORRECTIONAL MAINTENANCE TECHNICIAN Work Phone: [facility] 09-11-2021 Pfizer Purple Cap SARS-CoV-2 Vaccination Monie Neal CORRECTIONAL MAINTENANCE TECHNICIAN Work Phone: [facility] 02-06-2021 Pfizer Purple Cap SARS-CoV-2 Vaccination Monie Neal CORRECTIONAL MAINTENANCE TECHNICIAN Work Phone: [facility] 01-16-2021 Pfizer Purple Cap SARS-CoV-2 Vaccination Monie Neal CORRECTIONAL MAINTENANCE TECHNICIAN Work Phone: [facility] 07-17-2020 influenza, injectabl e, quadrivalent, preservative free Monie Neal CORRECTIONAL MAINTENANCE TECHNICIAN Work Phone: [facility] 08-25-2019 Influenza, injectabl e, Madin [place] Canine Kidney, preservative free, quadrivalent Monie Neal CORRECTIONAL MAINTENANCE TECHNICIAN Work Phone: [facility] 12-23-2018 zoster vaccine recombinant Monie Neal CORRECTIONAL MAINTENANCE TECHNICIAN Work Phone: [facility] 10-02-2018 zoster vaccine recombinant Monie Neal CORRECTIONAL MAINTENANCE TECHNICIAN Work Phone: [facility] 08-11-2018 influenza, injectabl e, quadrivalent, preservative free Monie Neal CORRECTIONAL MAINTENANCE TECHNICIAN Work Phone: [facility] 08-12-2017 Influenza, injectabl e, Madin [place] Canine Kidney, preservative free, quadrivalent Monie Neal CORRECTIONAL MAINTENANCE TECHNICIAN Work Phone: [facility] 01-02-2015 zoster vaccine, live Monie mccall CORRECTIONAL MAINTENANCE TECHNICIAN Work Phone: [facility] 09-10-2014 influenza, seasonal, injectable Monie Neal CORRECTIONAL MAINTENANCE TECHNICIAN Work Phone: [facility] 12-29-2009 novel influenza-H1N1 -09, preservative-free, injectable Monie Neal CORRECTIONAL MAINTENANCE TECHNICIAN Work Phone: [facility] Payers Date Payer Category Payer Private Health Insurance [id number] 2024 Unknown [id number] 2024 Unknown [id number] 2024 Unknown [id number] 1960 Unknown [id number] 2.16.84 [id number] 1960 Unknown [id number] 2.16.84 [id number] 1960 Unknown [id number] 2.16.84 [id number] 1960 Unknown [id number] 2.16.84 [id number] 1960 Unknown [id number] 2.16.84 [id number] 1960 Unknown [id number] 2.16.84 [id number] 1960 Unknown [id number] 2.16.84 [id number] 1960 Unknown [id number] 2.16.84 [id number] 1960 Unknown [id number] 2.16.84 [id number] 1959 Unknown [id number] 1959 Unknown [id number] Social History Date Type Detail Facility Unknown if ever smoked [employer] Other Start: 12-28-2023 End: 11-28-2024 Sex Assigned At [employer] Other Start: 08-01-2023 Tobacco smoking stat [facility] Ex-smoker [facility] End: 11-07-2007 History of tobacco use Current smoker [facility] End: 11-07-2007 History of tobacco use Cigarette Smoker [facility] Start: 08-01-2023 Tobacco use and exposure Smokeless tobacco non-user [facility] Start: 12-28-2023 End: 11-28-2024 Alcoholic beverage intake Lifetime non-drinker (finding) [facility] Start: 12-28-2023 End: 11-28-2024 History of Social function [facility] Start: 12-06-2023 Alcohol Comment occasional use [facility] Start: 1960 Sex assigned at Not on file N [facility] Medical Equipment Procedure Code Equipment Code Equipment Origin al Text Equipment Identifier Dates [id number] Start: 02-14-2023 Clinical Notes 07-28-2023 to 11-28-2024 Uli Redding MD - 11/28/2024 10:30 AM José Miguel Redding MD - 10/08/2024 10:30 AM Farhana Kaur MD - 09/20/2024 2:50 PM ESTTelephone Encounter - Aileen Soto LPN - 08/27/2024 9:50 AM EDT Note Date & Type Note Facility 11-28-2024 History of Present illness Narrative Images from the original note were not included. Subjective Patient ID: Javier Hoover is a 64 y.o. female who presents for Diabetes and Hypertension. Diabetes Mellitus Patient presents for follow up of diabetes. Current symptoms include: none. Patient denies foot ulcerations, hypoglycemia , increased appetite, nausea, paresthesia of the feet, polydipsia, polyuria, visual disturbances, and vomiting. Evaluation to date has included: fasting blood sugar, fasting lipid panel, hemoglobin A1C, and microalbuminuria. Home sugars: BGs range between 95 and 105. Hypertension Patient is here for follow-up of elevated blood pressure. Blood pressure is well controlled at home. Cardiac symptoms: none. Patient denies chest pain, claudication, dyspnea, exertional chest pressure/discomfort, irregular heart beat, lower extremity edema, near-syncope, orthopnea, palpitations, paroxysmal nocturnal dyspnea, and syncope. Cardiovascular risk factors: diabetes mellitus and hypertension. Pt taking ozempic and lisinopril as directed since last visit-doing well Pt states ins co nurse came to her house this morning checked her A1C it was 5.1% they will fax those rsults She also states they performed an eye exam when results are finalized they will also fax those results to the office She is sched for colonoscopy in dec 2024 Diabetes Hypertension Current Outpatient Medications on File Prior to Visit Medication Sig Dispense Refill Allergy Relief 180 MG tablet Take 180 mg by mouth in the morning. PRN. Blood Glucose Monitoring Suppl (D-Care Glucometer) w/Device kit 1 Device in the morning. 1 kit 0 Glucose Blood (Blood Glucose Test Strips 333) strip 1 strip by In Vitro route in the morning. 100 strip 3 Lancets Ultra Thin 30G [facility] USE TO TEST BLOOD SUGAR TWICE DAILY lisinopril 5 MG tablet Take 1 tablet (5 mg) by mouth Daily 30 tablet 11 Semaglutide,0.25 or 0.5MG/DOS, (Ozempic, 0.25 or 0.5 MG/DOSE,) 2 MG/3ML solution pen-injector Inject 0.5 mg under the skin 1 (one) time per week 3 mL 11 [DISCONTINUED] empagliflozin (Jardiance) 10 MG Take 1 tablet (10 mg) by mouth Daily 30 tablet 11 No current facility-administered medications on file prior to visit. I have reviewed and reconciled the history and medication list with the patient today. No Known Allergies Social History Tobacco Use Smoking status: Former Current packs/day: 0.00 Types: Cigarettes Quit date: 2007 Years since quittin.0 Smokeless tobacco: Never Substance Use Topics Alcohol use: Never Comment: occasional use Drug use: Never Family History Problem Relation Name Age of Onset Cancer Mother Past Medical History: Diagnosis Date BMI 29.0-29.9,adult Breast cancer screening by mammogram Depression screening Diabetes mellitus ([facility]) Encounter for gynecological examination (general) (routine) without abnormal findings Encounter for screening for osteoporosis Hot flashes Post-menopausal Past Surgical History: Procedure Laterality Date SECTION, LOW TRANSVERSE 1990 INNER EAR SURGERY Left Visit Vitals BP 130/80 Pulse 75 Ht 5' 2 Wt 163 lb LMP (LMP Unknown) SpO2 97% BMI 29.81 kg/m OB Status Postmenopausal Smoking Status Former BSA 1.8 m Review of Systems Objective Physical Exam Constitutional: General: She is not in acute distress. Appearance: Normal appearance. She is well-developed. HENT: Head: Normocephalic and atraumatic. Eyes: General: No scleral icterus. Conjunctiva/sclera: Conjunctivae normal. Cardiovascular: Rate and Rhythm: Normal rate and regular rhythm. Heart sounds: Normal heart sounds. No murmur heard. Pulmonary: Effort: Pulmonary effort is normal. No respiratory distress. Breath sounds: Normal breath sounds. No wheezing, rhonchi or rales. Skin: General: Skin is warm and dry. Neurological: General: No focal deficit present. Mental Status: She is alert and oriented to person, place, and time. Psychiatric: Mood and Affect: Mood normal. Behavior: Behavior normal. No visits with results within 1 Month(s) from this visit. Latest known visit with results is: Office Visit on 08/16/2024 Component Date Value Ref Range Status Hemoglobin A1C 08/16/2024 6.1 Final Glucose 08/17/2024 102 (H) 65 - 99 mg/dL Final Comment: Fasting reference interval For someone without known diabetes, a glucose value between 100 and 125 mg/dL is consistent with prediabetes and should be confirmed with a follow-up test. BUN 08/17/2024 17 7 - 25 mg/dL Final Creatinine 08/17/2024 0.81 0.50 - 1.05 mg/dL Final EGFR 08/17/2024 82 > OR = 60 mL/min/1.73m2 Final BUN/CREATININE RATIO 08/17/2024 SEE NOTE: 6 - 22 (calc) Final Comment: Not Reported: BUN and Creatinine are within reference range. Sodium 08/17/2024 139 135 - 146 mmol/L Final Potassium, Bld 08/17/2024 4.4 3.5 - 5.3 mmol/L Final Chloride 08/17/2024 106 98 - 110 mmol/L Final Carbon Dioxide 08/17/2024 23 20 - 32 mmol/L Final Calcium 08/17/2024 9.3 8.6 - 10.4 mg/dL Final PROTEIN, TOTAL 08/17/2024 6.9 6.1 - 8.1 g/dL Final ALBUMIN 08/17/2024 4.2 3.6 - 5.1 g/dL Final GLOBULIN 08/17/2024 2.7 1.9 - 3.7 g/dL (calc) Final ALBUMIN/GLOBULIN RATIO 08/17/2024 1.6 1.0 - 2.5 (calc) Final BILIRUBIN, TOTAL 08/17/2024 0.5 0.2 - 1.2 mg/dL Final ALKALINE PHOSPHATASE 08/17/2024 64 37 - 153 U/L Final AST 08/17/2024 20 10 - 35 U/L Final ALT 08/17/2024 17 6 - 29 U/L Final CREATININE, RANDOM URINE 08/17/2024 56 20 - 275 mg/dL Final ALBUMIN, URINE 08/17/2024 8.1 See Note: mg/dL Final Comment: Reference Range: Reference Range Not established ALBUMIN/CREATININE RATIO, RANDOM U* 08/17/2024 145 (H) <30 mg/g creat Final Comment: The ADA defines abnormalities in albumin excretion as follows: Albuminuria Category Result (mg/g creatinine) Normal to Mildly increased <30 Moderately increased 30-299 Severely increased > OR = 300 The ADA recommends that at least two of three specimens collected within a 3-6 month period be abnormal before considering a patient to be within a diagnostic category. CHOLESTEROL, TOTAL 08/17/2024 210 (H) <200 mg/dL Final HDL CHOLESTEROL 08/17/2024 85 > OR = 50 mg/dL Final TRIGLYCERIDES 08/17/2024 125 <150 mg/dL Final LDL-CHOLESTEROL 08/17/2024 102 (H) mg/dL (calc) Final Comment: Reference range: <100 Desirable range <100 mg/dL for primary prevention; <70 mg/dL for patients with CHD or diabetic patients with > or = 2 CHD risk factors. LDL-C is now calculated using the Sunday-Ryan calculation, which is a validated novel method providing better accuracy than the Friedewald equation in the estimation of LDL-C. Sunday MA et al. JESSE. 2013;310(19): 5929-8222 (http://education.PayPal.com/faq/HNU729) CHOL/HDLC RATIO 08/17/2024 2.5 <5.0 (calc) Final NON HDL CHOLESTEROL 08/17/2024 125 <130 mg/dL (calc) Final Comment: For patients with diabetes plus 1 major ASCVD risk factor, treating to a non-HDL-C goal of <100 mg/dL (LDL-C of <70 mg/dL) is considered a therapeutic option. Assessment/Plan Diagnoses and all orders for this visit: Type 2 diabetes mellitus without complication, without long-term current use of insulin (CMS/HCC) - FSBS log shows good control, most recent A1C is at or near goal. Continue current treatment plan as previously outlined without changes. Primary hypertension (CMS/HCC) - This is a chronic medical condition that is stable since last assessment. No changes in treatment are suggested at this time. Type 2 diabetes mellitus with other specified complication (CMS/HCC) Hyperlipidemia, unspecified (CMS/HCC) Follow up in about 3 months (around 02/26/2025) for Routine F/U. documented in this encounter [facility] 10-08-2024 History of Present illness Narrative Images from the original note were not included. Subjective Patient ID: Javier Hoover is a 64 y.o. female who presents for high blood pressure. Javier is in today for high blood pressure. States she started noticing her BP was high 2 weeks ago, states she takes her BP twice a day, her BP has been between 140/150 over 70/90. Denies any lightheaded or dizziness. Would also like to discuss her weight and starting a medication for it. Current Outpatient Medications on File Prior to Visit Medication Sig Dispense Refill Allergy Relief 180 MG tablet Take 180 mg by mouth in the morning. PRN. Blood Glucose Monitoring Suppl (D-Care Glucometer) w/Device kit 1 Device in the morning. 1 kit 0 empagliflozin (Jardiance) 10 MG Take 1 tablet (10 mg) by mouth Daily 30 tablet 11 Glucose Blood (Blood Glucose Test Strips 333) strip 1 strip by In Vitro route in the morning. 100 strip 3 Lancets Ultra Thin 30G misc USE TO TEST BLOOD SUGAR TWICE DAILY [DISCONTINUED] metFORMIN (Glucophage) 500 MG tablet Take 1 tablet (500 mg) by mouth in the morning and 1 tablet (500 mg) in the evening. Take with meals. 60 tablet 11 No current facility-administered medications on file prior to visit. I have reviewed and reconciled the history and medication list with the patient today. No Known Allergies Social History Tobacco Use Smoking status: Former Current packs/day: 0.00 Types: Cigarettes Quit date: 2007 Years since quittin.9 Smokeless tobacco: Never Substance Use Topics Alcohol use: Never Comment: occasional use Drug use: Never Family History Problem Relation Name Age of Onset Cancer Mother Past Medical History: Diagnosis Date BMI 29.0-29.9,adult Breast cancer screening by mammogram Depression screening Diabetes mellitus (CMS/HCC) Encounter for gynecological examination (general) (routine) without abnormal findings Encounter for screening for osteoporosis Hot flashes Post-menopausal Past Surgical History: Procedure Laterality Date SECTION, LOW TRANSVERSE 1991 INNER EAR SURGERY Left Visit Vitals BP 145/85 Pulse 81 Resp 17 Wt 169 lb LMP (LMP Unknown) SpO2 97% BMI 30.91 kg/m OB Status Postmenopausal Smoking Status Former BSA 1.83 m Review of Systems Objective Physical Exam Constitutional: General: She is not in acute distress. Appearance: Normal appearance. She is well-developed. HENT: Head: Normocephalic and atraumatic. Eyes: General: No scleral icterus. Conjunctiva/sclera: Conjunctivae normal. Cardiovascular: Rate and Rhythm: Normal rate and regular rhythm. Heart sounds: Normal heart sounds. No murmur heard. Pulmonary: Effort: Pulmonary effort is normal. No respiratory distress. Breath sounds: Normal breath sounds. No wheezing, rhonchi or rales. Skin: General: Skin is warm and dry. Neurological: General: No focal deficit present. Mental Status: She is alert and oriented to person, place, and time. Psychiatric: Mood and Affect: Mood normal. Behavior: Behavior normal. Assessment/Plan Diagnoses and all orders for this visit: Type 2 diabetes mellitus without complication, without long-term current use of insulin ([facility]) - Semaglutide,0.25 or 0.5MG/DOS, (Ozempic, 0.25 or 0.5 MG/DOSE,) 2 MG/3ML solution pen-injector; Inject 0.5 mg under the skin 1 (one) time per week - Stop Metformin due to GI complaints Primary hypertension ([facility]) - lisinopril 5 MG tablet; Take 1 tablet (5 mg) by mouth Daily Follow up in about 6 weeks (around 11/19/2024) for F/U med changes. documented in this encounter [facility] 09-20-2024 History of Present illness Narrative Lesions: Location: right rastafarian Duration: months Quality: denies pain, denies itch, denies bleeding Modifying factors: aggravated by picking Associated symptoms: rough, scaly Treatments: none Lesion # 2: Location: legs Duration: years Quality: denies pain, denies itch, denies bleeding Modifying factors: none Associated symptoms: getting bigger Treatments: none New patient All pertinent medical history, medications, and allergies were reviewed. General Exam: alert, oriented to person, place, and time, normal affect, well appearing Accompanied by spouse A focused exam completed based on patient reported problems, see below: 1. Dermatofibroma Left Lower Leg - Anterior Firm brown papule that dimples with lateral pressure. Discussed that these are benign scars on the skin. If lesion is changing/symptomatic, return to office to have lesion re-evaluated 2. Seborrheic keratosis, inflamed (2) Right Lower Leg - Anterior, Right Bahai [place] and brown stuck on verrucous scaly papule with surrounding erythema The patient was informed that symptomatic seborrheic keratoses are benign growths that become inflamed, itchy, tender, traumatized, caught on clothing, or bleed. Symptomatic lesions can be treated with cryotherapy or curretage. Thicker lesions treated with cryotherapy may require more than one treatment. The patient was instructed to notify the office if abnormal redness or tenderness develops at the treatment site. Cryotherapy today, see procedure note. Diagnosis: Inflamed seborrheic keratosis Indication: Inflamed Consent: Verbal consent was obtained and risks were discussed, including, but not limited to risks of scarring, darker or high school history teacher pigmentary changes, recurrence, incomplete removal and infection. Method: Liquid nitrogen was used to treat the lesion(s) with two 5-10 second freeze-thaw cycles Number of lesions treated: 2 Post-procedure instructions: Instructions were given orally and in writing. The office will be contacted if the lesion fails to resolve despite treatment, or if a side effect develops such as abnormal crusting, scabbing, redness or tenderness Cryotherapy, skin lesion - Right Lower Leg - Anterior, Right Bahai 3. Melanocytic nevus of trunk Chest - Medial (Center) Scattered benign appearing, regular brown to light brown melanocytic papules and macules with similar morphology Counseled regarding these benign growths. Rarely, a nevus can develop into malignant melanoma, so any changing nevi should be promptly re-evaluated. Next Visit: prn for any new/changing lesions, rec pt schedule FBSE documented in this encounter [facility] 08-27-2024 Telephone encounter Note Jardiance denied. It was stated that she failed Metformin but looks like an appeal will have to be done by you if you want her to have the Jardiance. An appeal can be done by calling . [facility] Work Phone: 08-27-2024 Miscellaneous Notes Jardiance denied. It was stated that she failed Metformin but looks like an appeal will have to be done by you if you want her to have the Jardiance. An appeal can be done by calling . Pt stopped in. He acknowledged waiting on the approval through insurance of the new script but he and the pt are concerned. They don't want her to run out of the metformin in the process of waiting for the approval. She does have a 2wk supply of the metformin. If the approval doesn't come through in that time she'd like a refill sent to drug [email or web address] in [place]. documented in this encounter [facility] 08-22-2024 Telephone encounter Note Pt stopped in. He acknowledged waiting on the approval through insurance of the new script but he and the pt are concerned. They don't want her to run out of the metformin in the process of waiting for the approval. She does have a 2wk supply of the metformin. If the approval doesn't come through in that time she'd like a refill sent to drug [facility] in [place]. T [facility] 08-16-2024 History of Present illness Narrative Images from the original note were not included. HPI look at skin lesions Additional comments: Pt wondering if she needs referral to dermatology Last edited by Tamika Browning LPN on 08/16/2024 1:54 PM. Subjective Patient ID: Javier Hoover is a 63 y.o. female who presents for Diabetes and look at skin lesions (Pt wondering if she needs referral to dermatology). Subjective Javier Hoover is an 62 y.o. female who presents for follow up of diabetes. Current symptoms include: none. Patient denies foot ulcerations, hypoglycemia , nausea, paresthesia of the feet, polydipsia, polyuria, visual disturbances, and vomiting. Evaluation to date has included: hemoglobin A1C. Home sugars: BGs range between 110 and 150. Pt has had small spot on right lower leg and next to right eye have been there for a long time Denies bleeding or pain Diabetes Earache Associated symptoms include coughing and rhinorrhea. Pertinent negatives include no abdominal pain, diarrhea, sore throat or vomiting. Current Outpatient Medications on File Prior to Visit Medication Sig Dispense Refill Allergy Relief 180 MG tablet Take 180 mg by mouth in the morning. PRN. Blood Glucose Monitoring Suppl (D-Care Glucometer) w/Device kit 1 Device in the morning. 1 kit 0 Glucose Blood (Blood Glucose Test Strips 333) strip 1 strip by In Vitro route in the morning. 100 strip 3 metFORMIN XR (Glucophage-XR) 500 MG 24 hr tablet Take 1 tablet (500 mg) by mouth in the evening. Take with meals Do not crush, chew, or split. 360 tablet 0 [DISCONTINUED] hydroCHLOROthiazide (HYDRODiuril) 25 MG tablet 1 (one) time each day at the same time. Lancets Ultra Thin 30G [facility] USE TO TEST BLOOD SUGAR TWICE DAILY [DISCONTINUED] mometasone (Elocon) 0.1 % cream Apply topically Daily 15 g 2 [DISCONTINUED] pantoprazole (Protonix) 40 MG EC tablet Take 1 tablet (40 mg) by mouth Daily as needed (Reflux) Do not crush, chew, or split. 30 tablet 2 No current facility-administered medications on file prior to visit. I have reviewed and reconciled the history and medication list with the patient today. No Known Allergies Social History Tobacco Use Smoking status: Former Current packs/day: 0.00 Types: Cigarettes Quit date: 2007 Years since quittin.7 Smokeless tobacco: Never Substance Use Topics Alcohol use: Never Comment: occasional use Drug use: Never Family History Problem Relation Name Age of Onset Cancer Mother Past Medical History: Diagnosis Date BMI 29.0-29.9,adult Breast cancer screening by mammogram Depression screening Diabetes mellitus ([facility]) Encounter for gynecological examination (general) (routine) without abnormal findings Encounter for screening for osteoporosis Hot flashes Post-menopausal Past Surgical History: Procedure Laterality Date SECTION, LOW TRANSVERSE 1991 INNER EAR SURGERY Left Visit Vitals Ht 5' 2 LMP (LMP Unknown) BMI 29.74 kg/m OB Status Postmenopausal Smoking Status Former BSA 1.8 m Review of Systems Constitutional: Negative. HENT: Positive for ear pain and rhinorrhea. Negative for sore throat. Eyes: Negative. Respiratory: Positive for cough. Gastrointestinal: Negative for abdominal pain, diarrhea and vomiting. Endocrine: Negative. Objective Physical Exam Vitals reviewed. Constitutional: Appearance: Normal appearance. HENT: Head: Normocephalic and atraumatic. Right Ear: External ear normal. Left Ear: External ear normal. Nose: Nose normal. Mouth/Throat: Mouth: Mucous membranes are moist. Pharynx: Oropharynx is clear. Eyes: Extraocular Movements: Extraocular movements intact. Conjunctiva/sclera: Conjunctivae normal. Pupils: Pupils are equal, round, and reactive to light. Cardiovascular: Rate and Rhythm: Normal rate and regular rhythm. Pulses: Normal pulses. Heart sounds: Normal heart sounds. Pulmonary: Effort: Pulmonary effort is normal. Breath sounds: Normal breath sounds. Musculoskeletal: Cervical back: Normal range of motion and neck supple. Skin: General: Skin is warm and dry. Findings: Lesion (right facial lesion, right lower leg lesion) present. Erythema: face flushed. Neurological: General: No focal deficit present. Mental Status: She is alert and oriented to person, place, and time. Psychiatric: Mood and Affect: Mood normal. Behavior: Behavior normal. Thought Content: Thought content normal. Judgment: Judgment normal. Assessment/Plan 1. Type 2 diabetes mellitus without complication, without long-term current use of insulin ([facility]) The pt's A1c is at 6.1 today. She reports that she dislikes using metformin dt the size of the tablet. She is requesting to have a smaller med. We discussed the use of jardiance today. She is in agreement to try this medication. - POCT Glycated hemoglobin, total - Comprehensive metabolic panel; Future - Microalbumin / creatinine, urine ratio; Future - Lipid panel; Future - Comprehensive metabolic panel - Microalbumin / creatinine, urine ratio - Lipid panel - empagliflozin (Jardiance) 10 MG; Take 1 tablet (10 mg) by mouth Daily Dispense: 30 tablet; Refill: 11 2. Skin lesion of face - Ambulatory referral to Dermatology; Future 3. Skin lesion of right leg - Ambulatory referral to Dermatology; Future No follow-ups on file. documented in this encounter [facility] 08-16-2024 Instructions Monie Neal NP - 08/16/2024 2:00 PM EDT Jardiance ordered Refer to dermatology documented in this encounter [facility] 07-28-2023 Evaluation note Encounter Date Diagnosis Assessment [...] fever. Patient/Parent verbalized understanding of treatment plan. [employer] Other Evaluation note* Diagnosis Skin lesion of face- Primary Unspecified disorder of skin and subcutaneous tissue Type 2 diabetes mellitus without complication, without long-term current use of insulin (CMS/HCC) Skin lesion of right leg Unspecified disorder of skin and subcutaneous tissue Type 2 diabetes mellitus with other specified complication (CMS/HCC) Hyperlipidemia, unspecified (CMS/HCC) [facility] Diagnosis Type 2 diabetes mellitus without complication, without long-term current use of insulin (CMS/HCC)- Primary Insulin resistance Other abnormal glucose [facility]* Diagnosis Melanocytic nevus of trunk- Primary Benign neoplasm of skin of trunk, except scrotum Dermatofibroma Benign neoplasm of skin, site unspecified Seborrheic keratosis, inflamed [facility]* Diagnosis Type 2 diabetes mellitus without complication, without long-term current use of insulin (CMS/HCC)- Primary Primary hypertension (CMS/HCC) Unspecified essential hypertension [facility] Diagnosis Type 2 diabetes mellitus without complication, without long-term current use of insulin (CMS/HCC)- Primary Primary hypertension (CMS/HCC) Unspecified essential hypertension Type 2 diabetes mellitus with other specified complication (CMS/HCC) Hyperlipidemia, unspecified (CMS/HCC) documented in this encounter [facility] HealthcareHistory general Narrative - Reported* Type Description Date Medical History diabetic [employer] Other Reason for referral (narrative)* Consultation (Routine) - Authorized Specialty Diagnoses / Procedures Referred By Brandon thrasher Referred To Contact Dermatology Diagnoses Skin lesion of face Skin lesion of right leg Procedures [place] OFFICE/OUTPATIENT NEW HIGH MDM 60 MINUTES Monie Neal, SHERRY [address] [facility] [address] [place] [address] Lance Calabrese MD [address] [facility] [address] [place] [address] Referral ID Status Reason Start Date Expiration Date Visits Requested Visits Authorized [id number] Authorized Specialty Services Required 4 02/12/2025 1 1 [facility] Healthcare Summary Purpose Family History No Family History Records FoundNo Family History Records Found Advance Directives No Advanced Directives Records FoundNo Advanced Directives Records Found Additional Source Comments INFORMATION SOURCE (unrecogn ized section and content) DATE CREATED AUTHOR 03/22/2023 [facility] DATE CREATED AUTHOR AUTHOR'S ORGANIZ ATION 11/30/2024 [facility] EPIC REASON FOR VISIT (unrecogniz ed section and content) Reason Comments Diabetes look at skin lesions Pt wondering if she needs referral to dermatology Reason Comments Diabetes Hypertension Care Teams (unrecognized sec tion and content) [employer] Relationship Specialty Start Date End Date Uli Redding MD [address] [place] [address] PCP - General Internal Medicine 08/01/23 [employer] Relationship Specialty Start Date End Date Uli Redding MD [address] [place] [address] PCP - General Internal Medicine 08/01/23 [employer] Relationship Specialty Start Date End Date Uli Redding MD [address] [place] [address] PCP - General Internal Medicine 08/01/23 [employer] Relationship Specialty Start Date End Date Uli Redding MD [address] [place] [address] PCP - General Internal Medicine 08/01/23 [employer] Relationship Specialty Start Date End Date Uli Redding MD [address] [place] [address] PCP - General Internal Medicine 08/01/23 [employer] Relationship Specialty Start Date End Date Uli Redding MD [address] [place] [address] PCP - General Internal Medicine 08/01/23 [employer] Relationship Specialty Start Date End Date Uli Redding MD [address] [place] [address] PCP - General Internal Medicine 08/01/23 [employer] Relationship Specialty Start Date End Date Uli Redding MD [address] [facility] [address] [place] [address] PCP - General Internal Medicine 08/01/23 FOR RECORDS PERTAINING TO PATIENTS WHO ARE [...] BE BASED ON THE PRIMARY CLINICAL RECORDS. [employer] provides no warranty or guarantee of the accuracy or completeness of information in this document.
[2024-12-24 16:08] LABS: Age Gdln ACOG Testing Note (.); HPV Aptima Negative (Negative); IGP, Aptima HPV, rfx 16/18,45 Note (.)
== END 2024-12-19 19:35 | disposition home or self-care (01) ==
LOC: LAB 19:34
PROVIDERS: PCP Internal Medicine; Visit Provider Physician Assistant
DX: Z01.419 Encounter for gynecological examination (general) (routine) without abnormal findings (principal)
CPT/HCPCS: 88175

== ENCOUNTER 2025-01-03 10:39 | Outpatient (OUT) | payer OTHER, SELFPAY ==
--- NOTE | 2025-01-03 10:50 | MM_ITS ---
Patient Name: JAVIER HOOVER MR#: [id number] : 1960 Exam Date: 01/03/2025 Ordering Doctor: ALEJO Ahn . RADIOLOGY REPORT PROCEDURE: MM TOMOSYNTHESIS SCREENING BI COMPARISON: MM TOMOSYNTHESIS SCREENING BI, 12/15/2023. MG MAMM SCREEN 3D ZEINAB CAD, 12/02/2022. MG MAMM SCREEN 3D ZEINAB CAD, 07/23/2021. MG MAMM ZEINAB SCRN W CAD DIG, 11/22/2011. INDICATIONS: Screening Calculator Name NCI Breast Cancer Risk Assessment Tool 5 Year Breast Cancer Risk 0.50% Lifetime Breast Cancer Risk 1.70% Personal Breast Cancer No Personal Ovarian Cancer No Treatments None Family Cancers Mother with ovarian cancer at age 57. LOCATION: [facility] BREAST COMPOSITION: The breasts are heterogeneously dense,which may obscure small masses. FINDINGS: DIAGNOSTIC CATEGORY 1--NEGATIVE. NO CHANGE FROM COMPARISON ASSESSMENT. RIGHT BREAST: No significant suspicious finding. LEFT BREAST: No significant suspicious finding. RECOMMENDATIONS: ROUTINE MAMMOGRAM AND CLINICAL EVALUATION IN 12 MONTHS. PLEASE NOTE: A NORMAL MAMMOGRAM DOES NOT EXCLUDE THE POSSIBILITY OF BREAST CANCER. A CLINICALLY SUSPICIOUS PALPABLE LUMP SHOULD BE BIOPSIED. Dictated by: Emil Watts DO on 01/03/2025 at 12:55 Approved by: Emil Watts DO on 01/03/2025 at 13:23
--- OUTSIDE RECORDS SUMMARY | 2025-01-03 11:00 | XMS_ITS | CCD ---
Author Organization [facility] Care Team Providers Care Public Health Worker Name Role Phone PERLA ., MARTHA Admitting Unavailable PERLA ., MARTHA Attending Unavailable CHRIS, DR BANEGAS Primary Care Unavailable NIC, DR VIGNESH Matta Consulting Unavailable PERLA ., MARTHA Consulting Unavailable CHRIS, DR BANEGAS Admitting Unavailable HOUSE, DR BANEGAS Attending Unavailable HOUSE, DR BANEGAS Primary Care Unavailable HOUSE, DR BANEGAS Consulting Unavailable PERLA ., MARTHA Admitting Unavailable PERLA ., MARTHA Attending Unavailable CHRIS, DR BANEGAS Primary Care Unavailable PERLA ., MARTHA Consulting Unavailable Sejal Davidson Unavailable Uli Redding MD Primary Care Provider ULI REDDING Attending Unavailable MARTHA DUNCAN Attending Unavailable DOTTIE BRIONES Attending Unavailable MONIE MARCUM Attending Unavailable KENIA KAUR Attending Unavailable ULI REDDING Attending Unavailable Medications Current Medications Medication Drug Class(es) Dates Sig (Normalized) Sig (Original) Blood Glucose Monitoring Suppl (D-Care Glucometer) w/Device kit (16 sources) Start: 10-04-2023 Blood Glucose Monitoring Suppl (D-Care Glucometer) w/Device kit Indications: Type 2 diabetes mellitus without complication, without long-term current use of insulin ([facility]) 1 Device in the morning. 1 kit 10/04/2023 Active cefdinir 300 mg oral capsule (1 source) Cephalosporin Antibacterial Start: 07-28-2023 take 1 capsule by mouth every twelve hours Cefdinir 300 MG 1 tablet Orally twice a day for 7 days Jul, Active fexofenadine hydrochloride 180 mg oral tablet (16 sources) Histamine-1 Receptor Antagonist Start: 05-24-2023 take 1 tablet by mouth in the morning as needed Allergy Relief 180 MG tablet Take 180 mg by mouth in the morning. PRN. 05/24/2023 Active Fezolinetant (Veozah) 45 MG tablet (3 sources) Start: 12-19-2024 End: 01-18-2025 take 1 tablet by mouth once daily Fezolinetant (Veozah) 45 MG tablet Indications: Postmenopausal osteoporosis (CMS/HCC) , Hot flashes Take 1 tablet by mouth Daily 30 tablet 12/19/2024 01/18/2025 Active fluticasone propionate 0.05 mg/actuat metered dose nasal spray (1 source) Corticosteroid Start: 07-28-2023 take 2 spray(s) nasal route once daily Fluticasone Propionate 50 MCG/ACT 2 sprays in each nostril Nasally Once a day for 14 days Jul, Active lisinopril 5 mg oral tablet (9 sources) Angiotensin Converting Enzyme Inhibitor Start: 10-08-2024 [...] or 0.5 MG/DOSE,) 2 MG/3ML solution pen-injector (9 sources) Start: 10-09-2024 Semaglutide,0. 25 or 0.5MG/DOS, [...] 1 (one) time per week 3 mL 10/08/2024 Active Completed/Discontinued Medications Medication Drug Class(es) [...] Problem Date Documented Date Episodic/Chronic Anxiety disorders (16 sources) Anxiety; Translations: [Anxiety disorder, unspecified] Onset: [...] Translations: [Hyperlipidemia, unspecified] 08-16-2024 Chronic Esophageal disorders (16 sources) Gastroesophageal reflux disease without esophagitis; Translations: [Gastro-esophageal reflux disease without esophagitis] Onset: 12-28-2023 12-28-2023 Chronic Essential hypertension (13 sources) Essential hypertension; Translations: [Essential (primary) hypertension] Onset: 10-08-2024 10-08-2024 Chronic Menopausal disorders (2 sources) Menopausal flushing; Translations: [Menopausal and female climacteric states] 12-19-2024 Chronic Osteoporosis (2 sources) Postmenopausal osteoporosis; Translations: [Age-related osteoporosis without current pathological fracture] 12-19-2024 Chronic Other aftercare (2 sources) Patient encounter status; Translations: [Other termite exterminator helper (current) drug therapy] 12-19-2024 Episodic Other and unspecified benign neoplasm (2 sources) Dermatofibroma; Translations: [Other benign neoplasm of skin, unspecified] 09-20-2024 Episodic Other and unspecified benign neoplasm (2 sources) Melanocytic nevus of trunk; Translations: [Melanocytic nevi of trunk] 09-20-2024 Episodic Other nutritional; endocrine; and metabolic disorders (1 source) Insulin resistance; Translations: [Insulin resistance] 08-29-2024 Chronic Other screening for suspected conditions (not mental disorders or infectious disease) (10 sources) Encounter for screening mammogram for malignant neoplasm of breast; Translations: [Encounter for screening for malignant neoplasm of cervix] Onset: 11-24-2022 Episodic Other skin disorders (2 sources) Lesion of skin of face; Translations: [Disorder of the skin and subcutaneous tissue, unspecified] 08-16-2024 Episodic Other skin disorders (2 sources) Mass of skin of right lower limb; Translations: [Disorder of the skin and subcutaneous tissue, unspecified] 08-16-2024 Episodic Other skin disorders (2 sources) Inflamed seborrheic keratosis; Translations: [Inflamed seborrheic keratosis] 09-20-2024 Episodic Other upper respiratory disease (16 sources) Allergic rhinitis due to pollen; Translations: [...] Onset: 11-27-2022 Episodic Other connective tissue disease (16 sources) Muscle pain; Translations: [Myalgia, unspecified site] Onset: 12-13-2023 12-13-2023 Episodic Residual codes; unclassified (1 source) Family history of malignant neoplasm of ovary; Translations: [FAM HX MALIGNANT NEOPLASM OVARY] Onset: 12-03-2022 Episodic Residual codes; unclassified (18 sources) Flushing; Translations: [Flushing] Onset: 08-01-2023 08-01-2023 Episodic Results Test Name Value Interpretation Reference Range Facility IGP,APTIMA HPV,AGE GDLNon AGE GDLN ACOG TESTING Note . [facility] Comment on above: TESTS RESULT FLAG UN ITS REF RANGE LAB Clinician Provided Cytology Information Source.............Cervix;Endocervix No. of containers..01 ThinPrep Vial Age Algo ACOG Serina... 30 FLAG LEGEND: L-Low Normal,H-High Normal,LL-Alert Low,HH-Alert High <-Panic Low,>-Panic High,A-Abnormal,AA-Critical Abnormal Performed at: 01 =[address] [address] Milyl Hutchison MD, HPV APTIMA Negative Negative [facility] Comment on above: This nucleic acid am plification test detects fourteen high- risk HPV types (16,18,31,33,35,39,45,51,52,56,58,59,66,68) without differentiation. Performed at: =[address] [id number] Certified Driver Examiner: Milly Hutchison MD, Phone: [phone] Performed at: [address] [id number] Certified Driver Examiner: Milly Hutchison MD, Phone: [phone] IGP, APTIMA HPV, RFX 16/18,45 Note . [facility] Comment on above: TESTS RESULT FLAG UN ITS REF RANGE LAB DIAGNOSIS: 02 NEGATIVE FOR INTRAEPITHELIAL LESION OR MALIGNANCY. Specimen adequacy: 02 Satisfactory for evaluation. Endocervical component may not be distinguished in cases of atrophy. Performed by: Antonio Kerr Organ Pipe Finisher . 02 Note: Note 02 The Pap smear is a screening test designed to aid in the detection of premalignant and malignant conditions of the uterine cervix. It is not a diagnostic procedure and should not be used as the sole means of detecting cervical cancer. Both false-positive and false-negative reports do occur. Test Methodology: Note 02 This liquid based ThinPrep(R) pap test was screened with the use of an image guided system. HPV Genotype Reflex Note 02 Criteria not met, HPV Genotype not performed. FLAG LEGEND: L-Low Normal,H-High Normal,LL-Alert Low,HH-Alert High <-Panic Low,>-Panic High,A-Abnormal,AA-Critical Abnormal Performed at: [address] [address] Milly Hutchison MD, BRUSH-SPATULA CERVIX ENDOCERVIX [facility] No Panel InformationOrdered By: Eneida Lozoya on 09-20-2024 [facility] Laboratory - Hematology and Cell countson 08-16-2024 HbA1c (Bld) [Mass fraction] 6.1 % [facility] No Panel Informationon 08-16 [facility] MG MAMM SCREEN 3D ZEINAB CADon 12-02-2022 MG MAMM SCREEN 3D ZEINAB CAD Patient: JAVIER HOOVER Exam Date: 12/02/2022 : 1960 Gender:F Ordering : ALEJO DUNCAN . Admission #: [id number] Family : Order #: [id number] CLICK HERE TO VIEW EXAM RADIOLOGY REPORT [...] ovarian cancer at age 57. LOCATION: [facility] BREAST COMPOSITION: Heterogeneously dense,which may obscure [...] Hoffmann M.D. on 12/02/2022 at 13:41 Normal [facility] PAP ACOG PANEL 2: 30 to 65on 11-26-2022 . . Normal [facility] Comment on above: Result Comment: Perf ormed at: WB Performed By: #### [id number] #### [facility] [address] [address] [address] Sulma Parsons Age Gdln ACOG Testing 30-65 Normal [facility] Comment on above: Performed By: #### [id number] #### [facility] [address] [address] [address] Sulma Parsons DIAGNOSIS: Comment Normal [facility] Comment on above: Result Comment: NEGA TIVE FOR INTRAEPITHELIAL LESION OR MALIGNANCY. CELLULAR CHANGES ASSOCIATED WITH ATROPHY ARE PRESENT. Performed at: WB Performed By: #### [id number] #### [facility] [address] [address] [address] Sulma Parsons HPV Aptima Negative Normal Negative [facility] Comment on above: Result Comment: This nucleic acid amplification test detects fourteen high-risk HPV types (16,18,31,33,35,39,45,51,52,56,58,59,66,68) without differentiation. Performed at: =G Performed By: #### [id number] #### [facility] [address] [place] [address] Dr. Sulma Parsons HPV Genotype Reflex Comment Normal [facility] Comment on above: Result Comment: Crit eria not met, HPV Genotype not performed. Performed at: WB Performed By: #### [id number] #### [facility] [address] [place] [address] Dr. Sulma Parsons Methodology: Comment Normal [facility] Comment on above: Result Comment: This liquid based ThinPrep(R) pap test was screened with the use of an image guided system. Performed at: WB Performed By: #### [id number] #### [facility] [address] [place] [address] Dr. Sulma Parsons Note: Comment Normal [facility] Comment on above: Result Comment: The Pap smear is a screening test designed to aid in the detection of premalignant and malignant conditions of the uterine cervix. It is not a diagnostic procedure and should not be used as the sole means of detecting cervical cancer. Both false-positive and false-negative reports do occur. . Performed at: WB Performed By: #### [id number] #### [facility] [address] [place] [address] Dr. Sulma Parsons Performed by: Comment Normal [facility] Comment on above: Result Comment: Tanesha Stauffer, Organ Pipe Finisher (ASCP) Performed at: WB Performed By: #### [id number] #### [facility] [address] [place] [address] Dr. Sulma Parsons Specimen adequacy: Comment Normal [facility] Comment on above: Result Comment: Sati sfactory for evaluation. Endocervical component may not be distinguished in cases of atrophy. Performed at: WB Performed By: #### [id number] #### [facility] [address] [place] [address] Dr. Sulma Parsons CBC AUTO DIFFon 08-10-2022 BASO # 0.0 103/ul Normal 0.0-0.1 [facility] Comment on above: Performed By: #### C BC #### [facility] [address] [place] [address] Dr. Sulma Parsons Basophils/100 WBC (Bld) 0.3 % Normal 0.2-2.0 [facility] Comment on above: Performed By: #### C BC #### [facility] [address] [place] [address] Dr. Sulma Parsons EO # 0.1 103/ul Normal 0.0-0.7 [facility] Comment on above: Performed By: #### C BC #### [facility] [address] [place] [address] Dr. Sulma Parsons Eosinophils/100 WBC (Bld) 1.7 % Normal 0.9-7.0 [facility] Comment on above: Performed By: #### C BC #### [facility] [address] [place] [address] Dr. Sulma Parsons Erythrocyte distribution width (RBC) [Ratio] 14.1 % Normal 11.0-15.0 [facility] Comment on above: Performed By: #### C BC #### [facility] [address] [place] [address] Dr. Sulma Parsons Hematocrit (Bld) [Volume fraction] 38.8 % Normal 36.0-48.0 [facility] Comment on above: Performed By: #### C BC #### [facility] [address] [place] [address] Dr. Sulma Parsons Hemoglobin (Bld) [Mass/Vol] 12.3 g/dL Normal 12.0-16.0 [facility] Comment on above: Performed By: #### C BC #### [facility] [address] [place] [address] Dr. Sulma Parsons IG # 0.02 10e3/ul Normal 0.00-0.03 [facility] Comment on above: Performed By: #### C BC #### [facility] [address] [place] [address] Dr. Sulma Parsons IG % 0.3 % Normal 0.0-0.5 [facility] Comment on above: Performed By: #### C BC #### [facility] [address] [place] [address] Dr. Sulma Parsons LYMPH # 2.7 103/ul Normal 1.2-3.8 [facility] Comment on above: Performed By: #### C BC #### [facility] [address] [place] [address] Dr. Sulma Parsons Lymphocytes/100 WBC (Bld) 45.9 % Normal 20.5-60.0 [facility] Comment on above: Performed By: #### C BC #### [facility] [address] [place] [address] Dr. Sulma Parsons MANUAL DIFF REQ NO Normal [facility] Comment on above: Performed By: #### C BC #### [facility] [address] [place] [address] Dr. Sulma Parsons MCH (RBC) [Entitic mass] 30.6 pg Normal 26.7-34.0 [facility] Comment on above: Performed By: #### C BC #### [facility] [address] [place] [address] Dr. Sulma Parsons MCHC (RBC) [Mass/Vol] 31.7 g/dL Normal 29.9-35.2 [facility] Comment on above: Performed By: #### C BC #### [facility] [address] [place] [address] Dr. Sulma Parsons MCV (RBC) [Entitic vol] 96.5 fL Normal 81.0-99.0 [facility] Comment on above: Performed By: #### C BC #### [facility] [address] [place] [address] Dr. Sulma Parsons MONO # 0.4 103/ul Normal 0.3-0.8 [facility] Comment on above: Performed By: #### C BC #### [facility] [address] [place] [address] Dr. Sulma Parsons Monocytes/100 WBC (Bld) 6.6 % Normal 1.7-12.0 [facility] Comment on above: Performed By: #### C BC #### [facility] [address] [place] [address] Dr. Sulma Parsons NEUT # 2.7 103/ul Normal 1.4-6.5 [facility] Comment on above: Performed By: #### C BC #### [facility] [address] [address] [address] Sulma Parsons Neutrophils/100 WBC (Bld) 45.2 % Normal 43.0-75.0 [facility] Comment on above: Performed By: #### C BC #### [facility] [address] [address] [address] Sulma Parsons Platelet mean volume (Bld) [Entitic vol] 11.9 fL Normal 9.5-13.5 [facility] Comment on above: Performed By: #### C BC #### [facility] [address] [address] [address] Sulma Parsons PLT 119 103/ul Critically low 150-450 [facility] Comment on above: Performed By: #### C BC #### [facility] [address] [address] [address] Sulma Parsons RBC 4.02 106/ul Critically low 4.20-5.40 [facility] Comment on above: Performed By: #### C BC #### [facility] [address] [address] [address] Sulma Parsons WBC 6.0 103/ul Normal 4.0-11.0 [facility] Comment on above: Performed By: #### C BC #### [facility] [address] [address] [address] Sulma Parsons GLYCOHEMOGLOBIN A1Con 2021 ADA RECOMMENDATION SEE BELOW Normal [facility] Comment on above: Result Comment: ADA RECOMMENDED LIMIT 4.0 - 6.0 ADA THERAPEUTIC TARGET < 7.0 ACTION SUGGESTED > 7.0 Performed By: #### A 1C #### [facility] [address] [place] [address] Dr. Sulma Parsons Glucose [Mass/Vol] 128 mg/dL Normal [facility] Comment on above: Performed By: #### A 1C #### [facility] [address] [address] [address] Sulma Parsons HbA1c (Bld) [Mass fraction] 6.1 % Normal 4.5-6.2 [facility] Comment on above: Performed By: #### A 1C #### [facility] [address] [address] [address] Sulma Parsons LIPID PROFILEon 08-10-2022 CHOL-HDL RATIO NORM SEE BELOW Normal [facility] Comment on above: Result Comment: 3.3 - 4.4 LOW RISK 4.4 - 7.1 AVERAGE RISK 7.1 - 11.0 MODERATE RISK >11.0 HIGH RISK Performed By: #### C MP, LIPID #### [facility] [address] [address] [address] Sulma Parsons Cholesterol [Mass/Vol] 205 mg/dL Critically high <=200 [facility] Comment on above: Performed By: #### C MP, LIPID #### [facility] [address] [address] [address] Sulma Parsons Cholesterol in HDL [Mass/Vol] 80 mg/dL Critically high 40-60 [facility] Comment on above: Performed By: #### C MP, LIPID #### [facility] [address] [address] [address] Sulma Parsons Cholesterol in LDL [Mass/Vol] 101.8 mg/dL Normal [facility] Comment on above: Performed By: #### C MP, LIPID #### [facility] [address] [place], [place] [address] Dr. Sulma Parsons Cholesterol.total/Chol esterol in HDL [Mass ratio] 2.6 {ratio} Normal [facility] Comment on above: Performed By: #### C MP, LIPID #### [facility] [address] [place], [place] [address] Dr. Sulma Parsons HDL NORMAL > or = 60 mg/dl - LOW CARDIOVASCULAR RISK <40 mg/dl - HIGH CARDIOVASCULAR RISK Normal [facility] Comment on above: Performed By: #### C MP, LIPID #### [facility] [address] [address] [address] Sulma Parsons LDL CALC NORMAL SEE BELOW Normal [facility] Comment on above: Result Comment: <100 mg/dl OPTIMAL 100 - 129 mg/dl NEAR OR ABOVE OPTIMAL 130 - 159 mg/dl BORDERLINE HIGH 160 - 189 mg/dl HIGH >190 mg/dl VERY HIGH Performed By: #### C MP, LIPID #### [facility] [address] [place] [address] Dr. Sulma Parsons Triglyceride [Mass/Vol] 116 mg/dL Normal <=150 [facility] Comment on above: Performed By: #### C MP, LIPID #### [facility] [address] [place] [address] Dr. Sulma Parsons VLDL CALC 23.2 mg/dL Normal [facility] Comment on above: Performed By: #### C MP, LIPID #### [facility] [address] [place] [address] Dr. Sulma Parsons MICROALBUMIN, RAND URon mALB 3.6 mg/L Normal <=30.0 [facility] Comment on above: Performed By: #### M ALBR #### [facility] [address] [place] [address] Dr. Sulma Parsons PROF 14(COMP METB)on 022 Albumin [Mass/Vol] 3.6 g/dL Normal 3.4-5.0 [facility] Comment on above: Performed By: #### C MP, LIPID #### [facility] [address] [place] [address] Dr. Sulma Parsons Albumin/Globulin [Mass ratio] 1.0 {ratio} Normal [facility] Comment on above: Performed By: #### C MP, LIPID #### [facility] [address] [place] [address] Dr. Sulma Parsons ALP [Catalytic activity/Vol] 68 U/L Normal 46-116 [facility] Comment on above: Performed By: #### C MP, LIPID #### [facility] [address] [place] [address] Dr. Sulma Parsons ALT [Catalytic activity/Vol] 20 U/L Normal 14-59 [facility] Comment on above: Performed By: #### C MP, LIPID #### [facility] [address] [place] [address] Dr. Sulma Parsons Anion gap [Moles/Vol] 14.2 mmol/L Normal [facility] Comment on above: Performed By: #### C MP, LIPID #### [facility] [address] [place] [address] Dr. Sulma Parsons AST [Catalytic activity/Vol] 18 U/L Normal 15-37 [facility] Comment on above: Performed By: #### C MP, LIPID #### [facility] [address] [place] [address] Dr. Sulma Parsons Bilirubin [Mass/Vol] 0.4 mg/dL Normal 0.2-1.0 [facility] Comment on above: Performed By: #### C MP, LIPID #### [facility] [address] [place] [address] Dr. Sulma Parsons Calcium [Mass/Vol] 8.6 mg/dL Normal 8.5-10.1 [facility] Comment on above: Performed By: #### C MP, LIPID #### [facility] [address] [place] [address] Dr. Sulma Parsons Chloride [Moles/Vol] 103 mmol/L Normal 98-107 [facility] Comment on above: Performed By: #### C MP, LIPID #### [facility] [address] [place] [address] Dr. Sulma Parsons CO2 [Moles/Vol] 23.9 mmol/L Normal 21.0-32.0 [facility] Comment on above: Performed By: #### C MP, LIPID #### [facility] [address] [place] [address] Dr. Sulma Parsons Creatinine [Mass/Vol] 0.77 mg/dL Normal 0.55-1.02 [facility] Comment on above: Performed By: #### C MP, LIPID #### [facility] [address] [place] [address] Dr. Sulma Parsons EGFR-AF ALBANIAN >60 Normal >=60 [facility] Comment on above: Performed By: #### C MP, LIPID #### [facility] [address] [place] [address] Dr. Sulma Parsons EGFR-NON AF ALBANIAN >60 Normal >=60 [facility] Comment on above: Performed By: #### C MP, LIPID #### [facility] [address] [place] [address] Dr. Sulma Parsons Globulin (S) [Mass/Vol] 3.7 g/dL Normal [facility] Comment on above: Performed By: #### C MP, LIPID #### [facility] [address] [place] [address] Dr. Sulma Parsons Glucose [Mass/Vol] 93 mg/dL Normal 74-106 [facility] Comment on above: Performed By: #### C MP, LIPID #### [facility] [address] [place] [address] Dr. Sulma Parsons Potassium [Moles/Vol] 4.1 mmol/L Normal 3.5-5.1 [facility] Comment on above: Performed By: #### C MP, LIPID #### [place] [facility] [address] [place] [address] Dr. Sulma Parsons Protein [Mass/Vol] 7.3 g/dL Normal 6.4-8.2 [facility] Comment on above: Performed By: #### C MP, LIPID #### [facility] [address] [place] [address] Dr. Sulma Parsons Sodium [Moles/Vol] 137 mmol/L Normal 136-145 [facility] Comment on above: Performed By: #### C MP, LIPID #### [facility] [address] [place] [address] Dr. Sulma Parsons Urea nitrogen [Mass/Vol] 19.0 mg/dL Critically high 7.0-18.0 [facility] Comment on above: Performed By: #### C MP, LIPID #### [facility] [address] [place] [address] Dr. Sulma Parsons Urea nitrogen/Creatinine [Mass ratio] 24.7 mg/mg Normal [facility] Comment on above: Performed By: #### C MP, LIPID #### [facility] [address] [place] [address] Dr. Sulma Parsons Vital Signs Date Time Vital Sign Value Performing Clinician Facility 12-19-2024 10:57-0500 Body mass index (BMI) [Ratio] 30.18 kg/m2 Martha DHILLON Work Phone: [facility] 12-19-2024 10:57-0500 Body weight 74.84 kg Martha Duncan PA Work Phone: [facility] 12-19-2024 10:57-0500 Diastolic blood pressure 74 mm[Hg] Martha Duncan PA Work Phone: [facility] 12-19-2024 10:57-0500 Systolic blood pressure 122 mm[Hg] Martha Duncan PA Work Phone: [facility] 11-28-2024 10:30-0500 Body height 157.5 cm Uli Redding MD Work Phone: [facility] 11-28-2024 10:30-0500 Body mass index (BMI) [Ratio] 29.81 kg/m2 Uli Redding MD Work Phone: [facility] 11-28-2024 10:30-0500 Body weight 73.94 kg Uli Redding MD Work Phone: [facility] 11-28-2024 10:30-0500 Diastolic blood pressure 80 mm[Hg] Uli Redding MD Work Phone: [facility] 11-28-2024 10:30-0500 Heart rate 75 /min Uli Redding MD Work Phone: [facility] 11-28-2024 10:30-0500 SaO2% (BldA) [Mass fraction] 97 % Uli Redding MD Work Phone: [facility] 11-28-2024 10:30-0500 Systolic blood pressure 130 mm[Hg] Uli Redding MD Work Phone: [facility] 10-08-2024 10:44-0500 Body mass index (BMI) [Ratio] 30.91 kg/m2 Uli Redding MD Work Phone: [facility] 10-08-2024 10:44-0500 Body weight 76.66 kg Uli Redding MD Work Phone: [facility] 10-08-2024 10:44-0500 Diastolic blood pressure 85 mm[Hg] Uli Redding MD Work Phone: [facility] 10-08-2024 10:44-0500 Heart rate 81 /min Uli Redding MD Work Phone: [facility] 10-08-2024 10:44-0500 Respiratory rate 17 /min Uli Redding MD Work Phone: [facility] 10-08-2024 10:44-0500 SaO2% (BldA) [Mass fraction] 97 % Uli Redding MD Work Phone: [facility] 10-08-2024 10:44-0500 Systolic blood pressure 145 mm[Hg] Uli Redding MD Work Phone: [facility] 08-16-2024 13:49-0400 Body height 157.5 cm Monie Marcum ALLIGATOR SHEAR OPERATOR Work Phone: [facility] 08-16-2024 13:49-0400 Body mass index (BMI) [Ratio] 30.54 kg/m2 Monie Marcum ALLIGATOR SHEAR OPERATOR Work Phone: [facility] 08-16-2024 13:49-0400 Body weight 75.75 kg Monie Marcum ALLIGATOR SHEAR OPERATOR Work Phone: [facility] 08-16-2024 13:49-0400 Diastolic blood pressure 82 mm[Hg] Monie Marcum ALLIGATOR SHEAR OPERATOR Work Phone: [facility] 08-16-2024 13:49-0400 Heart rate 73 /min Monie Marcum ALLIGATOR SHEAR OPERATOR Work Phone: [facility] 08-16-2024 13:49-0400 SaO2% (BldA) [Mass fraction] 97 % Monie Marcum ALLIGATOR SHEAR OPERATOR Work Phone: [facility] 08-16-2024 13:49-0400 Systolic blood pressure 130 mm[Hg] Monie Marcum ALLIGATOR SHEAR OPERATOR Work Phone: [facility] 07-28-2023 09:10-0400 Body height 157.48 cm Sejal Davidson Other [facility] 07-28-2023 09:10-0400 Body mass index (BMI) [Ratio] 30.32 kg/m2 Sejal Davidson Other [facility] Other 07-28-2023 09:10-0400 Body temperature 97.9 [degF] Sejal Davidson Other [facility] Other 07-28-2023 09:10-0400 Body weight 75.21 kg Seajl Davidson Other [facility] Other 07-28-2023 09:10-0400 Diastolic blood pressure 80 mm[Hg] Sejal Davidson Other [facility] Other 07-28-2023 09:10-0400 Respiratory rate 18 /min Sejal Davidson Other [facility] Other 07-28-2023 09:10-0400 SaO2% (BldA) [Mass fraction] 98 % Sejal Davidson Other [facility] Other 07-28-2023 09:10-0400 Systolic blood pressure 126 mm[Hg] Sejal Davidson Other [facility] Other Encounters Encounter Date Encounter Type Care Provider Facility Start: 12-19-2024 End: 12-19-2024 Bamboo flowsheet Martha DHILLON Work Phone: [facility] Start: 12-19-2024 End: 12-24-2024 Bamboo flowsheet Martha DHILLON Work Phone: [facility] Start: 12-19-2024 End: 12-24-2024 Clinisync Result Encounter Generic External Data Provider [facility] Unsolicited Start: 12-19-2024 End: 12-19-2024 Patient encounter procedure Martha DHILLON Work Phone: [facility] Start: 12-19-2024 End: 12-19-2024 Periodic preventive med est patient 40-64yrs Martha DHILLON Work Phone: [facility] Comment on above: Well woman exam with routine gynecological exam; Breast cancer screening by mammogram; Postmenopausal osteoporosis (CMS/HCC); Pharmacologic therapy; Hot flashes; Hot flashes due to menopause Start: 12-19-2024 End: 12-19-2024 ambulatory MARTHA DUNCAN Not Available Start: 11-28-2024 End: 11-28-2024 Bamboo flowsheet Uli Redding MD Work Phone: [facility] Start: 11-28-2024 End: 11-28-2024 Bamboo flowsheet Uli Redding MD Work Phone: [facility] [...] Start: 08-16-2024 End: 08-16-2024 Bamboo flowsheet Monie Marcum ALLIGATOR SHEAR OPERATOR Work Phone: [facility] Start: 08-16-2024 End: 08-16-2024 Bamboo flowsheet Monie Marcum ALLIGATOR SHEAR OPERATOR Work Phone: [facility] Start: 08-16-2024 End: 08-16-2024 Office outpatient visit 15 minutes Monie Marcum ALLIGATOR SHEAR OPERATOR Work Phone: [facility] Comment on above: Skin lesion of face (Primary Dx); Type 2 diabetes mellitus without complication, without long-term current use of insulin (CMS/HCC); Skin lesion of right leg; Type 2 diabetes mellitus with other specified complication (CMS/HCC); Hyperlipidemia, unspecified (CMS/HCC) Start: 08-16-2024 End: 08-16-2024 ambulatory MONIE MARCUM Not Available Start: 12-28-2023 End: 12-28-2023 ambulatory DOTTIE BRIONES Not Available Start: 07-28-2023 End: 07-28-2023 ambulatory Sejal Davidson Other [facility] Other Start: 07-28-2023 Office outpatient ne w 20 minutes Sejal Davidson [facility] [place] Start: 12-02-2022 End: 12-03-2022 ambulatory MARTHA DUNCAN . Facility:[facility] Start: 11-24-2022 End: 11-24-2022 ambulatory MARTHA DUNCAN . Facility:[facility] Start: 08-12-2022 Encounter for genera l adult medical examination without abnormal findings DR MAKENZIE PEREZ [facility] Start: 08-10-2022 End: 08-11-[address] MAKENZIE PEREZ Facility:[facility] Start: 08-10-2022 End: 08-11-2022 Encounter for general adult medical examination without abnormal findings DR MAKENZIE PEREZ Facility:[facility] Procedures Date Procedure Procedure Detail Performing Clinician Start: 12-19-2024 IGP,APTIMA HPV,AGE GDLN Martha Duncan PA Work Phone: Start: 09-20-2024 CRYOTHERAPY SKIN LESION Kenia Kaur MD Work Phone: Start: 08-16-2024 Hemoglobin glycosyla juliana a1c Uli Redding MD Work Phone: Start: 12-21-2023 Mammography Monie Marcum NP Work Phone: Start: 05-23-2023 Microscopic observat ion [Identifier] in Cervix by Cyto stain Monie Marcum ALLIGATOR SHEAR OPERATOR Work Phone: Plan of Treatment Date Care Activity Detail Author Start: 05-23-2028 Screening for malign ant neoplasm of cervix [facility] Start: 08-17-2025 Urine screening for protein Diabetes: Urine Protein Screening [facility] Start: 02-27-2025 End: 02-27-2025 Patient encounter procedure 02/27/2025 10:30 AM EDT Office Visit [facility] [address] [facility] [address] [place] [id number] Uli Redding MD [address] [facility] [address] [place] [address] [facility] Start: 02-26-2025 Hemoglobin A1c measurement Diabetes: Hemoglobin A1C [facility] Start: 12-21-2024 Screening for malign ant neoplasm of breast Mammogram [facility] Start: 12-19-2024 End: 12-19-2025 DXA Skeletal system Views for bone density DEXA bone density Imaging Routine Postmenopausal osteoporosis (CMS/HCC) Expected: 12/19/2024 (Approximate), Expires: 12/19/2025 [facility] Comment on above: Expected: 12/19/2024 (Approximate), Expires: 12/19/2025 Start: 12-19-2024 End: 02-16-2026 MG Breast - bilateral Screening Bilateral screening mammogram Imaging Routine Breast cancer screening by mammogram Expected: 12/19/2024 (Approximate), Expires: 02/16/2026 [facility] Work Phone: Comment on above: Expected: 12/19/2024 (Approximate), Expires: 02/16/2026 Start: 12-19-2024 End: 12-19-2024 Patient encounter procedure [facility] Comment on above: Arrived Start: 11-28-2024 End: 11-28-2024 Patient encounter procedure 11/28/2024 10:30 AM EST Office Visit [facility] [address] [place] [address] Uli Redding MD [address] [place] [address] Arrived [facility] Comment on above: Arrived Start: 11-21-2024 End: 11-21-2024 Patient encounter procedure 11/21/2024 1:00 PM EST Office Visit [facility] [address] [place] [address] Monie Marcum, ALLIGATOR SHEAR OPERATOR [address] [place] [address] [facility] Start: 11-16-2024 Hemoglobin A1c measurement Diabetes: Hemoglobin A1C [facility] Start: 09-20-2024 End: 09-20-2024 Patient encounter procedure 09/20/2024 2:50 PM EST Office Visit [facility] [address] [place] [id number] Kenia Kaur MD [address] [place] [address] [facility] Start: 09-02-2024 Urine screening for protein Diabetes: Urine Protein Screening [facility] Start: 08-16-2024 End: 08-16-2025 Comprehensive metabolic 2000 panel - Serum or Plasma Comprehensive metabolic panel Lab Routine Type 2 diabetes mellitus without complication, without long-term current use of insulin ([facility]) Expected: 08/16/2024 (Approximate), Expires: 08/16/2025 [facility] Work Phone: Comment on above: Expected: 08/16/2024 (Approximate), Expires: 08/16/2025 Start: 08-16-2024 End: 08-16-2025 Lipid 1996 panel - Serum or Plasma Lipid panel Lab Routine Type 2 diabetes mellitus without complication, without long-term current use of insulin ([facility]) Expected: 08/16/2024 (Approximate), Expires: 08/16/2025 [facility] Comment on above: Expected: 08/16/2024 (Approximate), Expires: 08/16/2025 Start: 08-16-2024 End: 08-16-2025 Microalbumin/Creatinine panel in random Urine Microalbumin / creatinine, urine ratio Lab Routine Type 2 diabetes mellitus without complication, without long-term current use of insulin ([facility]) Expected: 08/16/2024 (Approximate), Expires: 08/16/2025 [facility] Comment on above: Expected: 08/16/2024 (Approximate), Expires: 08/16/2025 Start: 08-16-2024 End: 08-16-2024 Patient encounter procedure 08/16/2024 2:00 PM EDT Office Visit [facility] [address] [facility] [address] [place] [id number] Monie Marcum, ALLIGATOR SHEAR OPERATOR [address] [facility] [address] [place] [address] Arrived [facility] Comment on above: Arrived Start: 07-08-2024 Influenza vaccination Influenza Vacc ine (#1) [facility] Start: 10-31-2023 Hemoglobin A1c measurement Diabetes: Hemoglobin A1C [facility] Start: 1970 Glaucoma screening Diabetes: R etinopathy Screening [facility] Start: 1960 Screening for malign ant neoplasm of colon [facility] Comprehensive metabo lic 2000 panel - Serum or Plasma Comprehensive metabolic panel Lab Routine Postmenopausal osteoporosis ([facility]) Pharmacologic therapy Ordered: 12/19/2024 [facility] Comment on above: Ordered: 12/19/2024 THIN PREP TIS PAP AN D HR HPV DNA THIN PREP TIS PAP AND HR HPV DNA Pathology and Cytology Routine Well woman exam with routine gynecological exam Ordered: 12/19/2024 [facility] Comment on above: Ordered: 12/19/2024 Immunizations Immunization Date Immunization Notes Care Provider [facility] 09-29-2024 influenza, seasonal, injectable, preservative free Uli Redding MD Work Phone: [facility] 10-18-2023 Influenza, injectabl e, Madin [place] Canine Kidney, preservative free, quadrivalent Uli Redding MD Work Phone: [facility] 10-18-2023 influenza virus vacc ine, unspecified formulation Monie Marcum ALLIGATOR SHEAR OPERATOR Work Phone: [facility] 09-12-2022 Influenza, injectabl e, Madin [place] Canine Kidney, preservative free, quadrivalent Monie Marcum ALLIGATOR SHEAR OPERATOR Work Phone: [facility] 09-01-2022 SARS-COV-2 (COVID-19 ) vaccine, mRNA, spike protein, LNP, bivalent, preservative free, 30 mcg/0.3 mL dose, nely-sucrose formulation Monie Marcum ALLIGATOR SHEAR OPERATOR Work Phone: [facility] 02-07-2022 Pfizer Bennett Cap SARS-CoV-2 Vaccination Monie Marcum ALLIGATOR SHEAR OPERATOR Work Phone: [facility] 09-24-2021 influenza, injectabl e, quadrivalent, preservative free Monie Marcum ALLIGATOR SHEAR OPERATOR Work Phone: [facility] 09-11-2021 Pfizer Purple Cap SARS-CoV-2 Vaccination Monie Marcum ALLIGATOR SHEAR OPERATOR Work Phone: [facility] 02-06-2021 Pfizer Purple Cap SARS-CoV-2 Vaccination Monie Marcum ALLIGATOR SHEAR OPERATOR Work Phone: [facility] 01-16-2021 Pfizer Purple Cap SARS-CoV-2 Vaccination Monie Marcum ALLIGATOR SHEAR OPERATOR Work Phone: [facility] 07-17-2020 influenza, injectabl e, quadrivalent, preservative free Monie Marcum ALLIGATOR SHEAR OPERATOR Work Phone: [facility] 08-25-2019 Influenza, injectabl e, Madin [place] Canine Kidney, preservative free, quadrivalent Monie Marcum ALLIGATOR SHEAR OPERATOR Work Phone: [facility] 12-23-2018 zoster vaccine recombinant Monie Marcum ALLIGATOR SHEAR OPERATOR Work Phone: [facility] 10-02-2018 zoster vaccine recombinant Monie Marcum ALLIGATOR SHEAR OPERATOR Work Phone: [facility] 08-11-2018 influenza, injectabl e, quadrivalent, preservative free Monie Marcum ALLIGATOR SHEAR OPERATOR Work Phone: [facility] 08-12-2017 Influenza, injectabl e, Madin [place] Canine Kidney, preservative free, quadrivalent Monie Marcum ALLIGATOR SHEAR OPERATOR Work Phone: [facility] 01-02-2015 zoster vaccine, live Monie mccall ALLIGATOR SHEAR OPERATOR Work Phone: [facility] 09-10-2014 influenza, seasonal, injectable Monie Marcum ALLIGATOR SHEAR OPERATOR Work Phone: [facility] 12-29-2009 novel influenza-H1N1 -09, preservative-free, injectable Monie Marcum ALLIGATOR SHEAR OPERATOR Work Phone: [facility] Payers Date Payer Category Payer Private Health Insurance [id number] 2024 Unknown [id number] 2024 Unknown [id number] 2024 Unknown [id number] 1960 Unknown [id number] 2.16.84 [id number] 1960 Unknown [id number] 2.16.84 [id number] 1960 Unknown [id number] 2.16.84 [id number] 1960 Unknown [id number] 2.16.84 [id number] 1960 Unknown [id number] 2.16.84 [id number] 1960 Unknown [id number] 2.16.84 [id number] 1960 Unknown [id number] 2.16.84 [id number] 1960 Unknown [id number] 2.16.84 [id number] 1960 Unknown [id number] 2.16.84 [id number] 1959 Unknown [id number] 1959 Unknown [id number] Social History Date Type Detail Facility Unknown if ever smoked [facility] Other Start: 12-28-2023 End: 11-28-2024 Sex Assigned At [facility] Other Start: 08-01-2023 Tobacco smoking stat [facility] Ex-smoker [facility] End: 11-07-2007 History of tobacco use Current smoker [facility] End: 11-07-2007 History of tobacco use Cigarette Smoker [facility] Start: 08-01-2023 Tobacco use and exposure Smokeless tobacco non-user [facility] Start: 12-28-2023 End: 11-28-2024 Alcoholic beverage intake Lifetime non-drinker (finding) [facility] Start: 12-28-2023 End: 11-28-2024 History of Social function [facility] Start: 12-06-2023 Alcohol Comment occasional use [facility] Start: 1960 Sex assigned at Not on file [facility] Medical Equipment Procedure Code Equipment Code Equipment Origin al Text Equipment Identifier Dates [id number] Start: 02-14-2023 Clinical Notes 07-28-2023 to 12-19-2024 ALEJO Alamo - 12/19/2024 11:00 AM José Miguel Redding MD - 11/28/2024 10:30 AM José Miguel Redding MD - 10/08/2024 10:30 AM Farhana Kaur MD - 09/20/2024 2:50 PM ESTPatient Instructions Note Date & Type Note Facility 12-19-2024 History of Present illness Narrative Reason for Appointment: Patient ID: Javier Hoover is a 64 y.o. female who presents for Gynecologic Exam Patient presents today for Annual Exam. MEDICATIONS Current Outpatient Medications Medication Instructions Allergy Relief 180 mg, Daily Blood Glucose Monitoring Suppl ([employer] Glucometer) w/Device kit 1 Device, Does not apply, Daily Glucose Blood (Blood Glucose Test Strips 333) strip 1 strip, In Vitro, Daily Lancets Ultra Thin 30G misc USE TO TEST BLOOD SUGAR TWICE DAILY lisinopril 5 mg, Oral, Daily Ozempic (0.25 or 0.5 MG/DOSE) 0.5 mg, Subcutaneous, Weekly ALLERGIES No Known Allergies PROBLEMS Active Ambulatory Problems Diagnosis Date Noted Anxiety 08/01/2023 Hot flashes 08/01/2023 Type 2 diabetes mellitus without complication, without long-term current use of insulin ([facility]) 08/01/2023 Myalgia 12/13/2023 Gastroesophageal reflux disease without esophagitis 12/28/2023 Seasonal allergic rhinitis due to pollen 12/28/2023 Primary hypertension ([facility]) 10/08/2024 Resolved Ambulatory Problems Diagnosis Date Noted No Resolved Ambulatory Problems Past Medical History: Diagnosis Date BMI 29.0-29.9,adult Breast cancer screening by mammogram Depression screening Diabetes mellitus ([facility]) Encounter for gynecological examination (general) (routine) without abnormal findings Encounter for screening for osteoporosis Post-menopausal HISTORY PAST MEDICAL HISTORY SOCIAL HISTORY Past Medical History: Diagnosis Date BMI 29.0-29.9,adult Breast cancer screening by mammogram Depression screening Diabetes mellitus ([facility]) Encounter for gynecological examination (general) (routine) without abnormal findings Encounter for screening for osteoporosis Hot flashes Post-menopausal Social History Tobacco Use Smoking status: Former Current packs/day: 0.00 Types: Cigarettes Quit date: 2007 Years since quittin.1 Smokeless tobacco: Never Substance Use Topics Alcohol use: Never Comment: occasional use Drug use: Never FAMILY HISTORY Family History Problem Relation Name Age of Onset Cancer Mother SURGICAL HISTORY Past Surgical History: Procedure Laterality Date SECTION, LOW TRANSVERSE 1991 INNER EAR SURGERY Left REVIEW OF SYSTEMS Review of Systems: Review of Systems Constitutional: Negative. HENT: Negative. Eyes: Negative. Respiratory: Negative. Cardiovascular: Negative. Gastrointestinal: Negative. Genitourinary: Negative. Musculoskeletal: Negative. Skin: Negative. Neurological: Negative. All other systems reviewed and are negative. Hematological: Negative. Endocrine: Negative. Allergic/Immunologic: Negative. OBJECTIVE Objective: Physical Exam Constitutional: Appearance: Normal appearance. She is normal weight. Genitourinary: Right Adnexa: not tender and no mass present. Left Adnexa: not tender and no mass present. No cervical discharge. Breasts: Breasts are soft. Right: Normal. Left: Normal. HENT: Head: Normocephalic. Nose: Nose normal. Mouth/Throat: Mouth: Mucous membranes are moist. Cardiovascular: Rate and Rhythm: Normal rate. Pulses: Normal pulses. Pulmonary: Effort: Pulmonary effort is normal. Breath sounds: Normal breath sounds. Abdominal: General: Bowel sounds are normal. Palpations: Abdomen is soft. Musculoskeletal: General: Normal range of motion. Cervical back: Normal range of motion. Neurological: General: No focal deficit present. Mental Status: She is alert and oriented to person, place, and time. Skin: General: Skin is warm and dry. Psychiatric: Mood and Affect: Mood normal. Behavior: Behavior normal. Thought Content: Thought content normal. Judgment: Judgment normal. Vitals and nursing note reviewed. Exam conducted with a manager quality compliance present. Vitals: Estimated body mass index is 29.81 kg/m as calculated from the following: Height as of 11/28/24: 5' 2 . Weight as of 11/28/24: 163 lb. BP: No LMP recorded (lmp unknown). Patient is postmenopausal. ASSESSMENT & PLAN ICD-10-CM 1. Well woman exam with routine gynecological exam Z01.419 THIN PREP TIS PAP AND HR HPV DNA 2. Breast cancer screening by mammogram Z12.31 Bilateral screening mammogram Bilateral screening mammogram 3. Postmenopausal osteoporosis ([facility]) M81.0 DEXA bone density Annual: Patient presents today for an annual exam. Patient states she is doing well and has no complaints. Pap was obtained without difficulty and patient given mammogram order to have scheduled/obtained. Orders Placed This Encounter Procedures Bilateral screening mammogram DEXA bone density Patient bone density discussed, patient would be interested in fosamax if needed when scan complete. Also sent home Veozah samples and order sent to pharmacy for refill, patient called and I explained the process of her script and sent in labs to be drawn. Follow Up: Patient is to return in one year for annual unless needed otherwise. Documented by Nadege Aquino MA on behalf of: ALEJO Alamo documented in this encounter [facility] 11-28-2024 History of Present illness Narrative Images [...] by mammogram Depression screening Diabetes mellitus ([facility]) Encounter for gynecological examination (general) (routine) without [...] LDL-C. Sunday MA et al. JESSE. 2013;310(19): 4445-5918 (http://education.iCetana/faq/KUB812) CHOL/HDLC RATIO 08/17/2024 2.5 <5.0 (calc) Final [...] for Routine F/U. documented in this encounter [facility] 10-08-2024 History of Present illness Narrative Images [...] the morning. PRN. Blood Glucose Monitoring Suppl ([employer] Glucometer) w/Device kit 1 Device in the [...] by mammogram Depression screening Diabetes mellitus ([facility]) Encounter for gynecological examination (general) (routine) without [...] complication, without long-term current use of insulin (CMS/[facility]) - Semaglutide,0.25 or 0.5MG/DOS, (Ozempic, 0.25 or 0.5 MG/DOSE,) 2 MG/3ML solution pen-injector; Inject 0.5 mg under the skin 1 (one) time per week - Stop Metformin due to GI complaints Primary hypertension (CMS/HCC) - lisinopril 5 MG tablet; Take 1 tablet (5 mg) by mouth Daily Follow up in about 6 weeks (around 11/19/2024) for F/U med changes. documented in this encounter [facility] 09-20-2024 History of Present illness Narrative Lesions: Location: right judaism Duration: months Quality: denies pain, denies itch, [...] (2) Right Lower Leg - Anterior, Right [place] and brown stuck on verrucous scaly papule [...] limited to risks of scarring, darker or feather washer pigmentary changes, recurrence, incomplete removal and infection. [...] - Right Lower Leg - Anterior, Right [place] 3. Melanocytic nevus of trunk Chest - Medial (Center) Scattered benign appearing, regular brown to light brown melanocytic papules and macules with similar morphology Counseled regarding these benign growths. Rarely, a nevus can develop into malignant melanoma, so any changing nevi should be promptly re-evaluated. Next Visit: prn for any new/changing lesions, rec pt schedule FBSE documented in this encounter [facility] 08-27-2024 Telephone encounter Note Jardiance denied. It was stated that she failed Metformin but looks like an appeal will have to be done by you if you want her to have the Jardiance. An appeal can be done by calling . [facility] Work Phone: 08-27-2024 Miscellaneous Notes Jardiance denied. [...] [facility] [place] documented in this encounter [facility] 08-22-2024 Telephone encounter Note Pt stopped in. [...] she'd [facility] [place] 08-16-2024 History of Present illness Narrative Images [...] the morning. PRN. Blood Glucose Monitoring Suppl ([employer] Glucometer) w/Device kit 1 Device in the [...] the same time. Lancets Ultra Thin 30G misc USE TO [...] by mammogram Depression screening Diabetes mellitus ([facility]) Encounter for gynecological examination (general) (routine) without abnormal findings Encounter for screening for osteoporosis Hot flashes Post-menopausal Past Surgical History: Procedure Laterality Date SECTION, LOW TRANSVERSE 1990 INNER EAR SURGERY Left Visit Vitals Ht [...] without long-term current use of insulin ([facility]) The pt's A1c is at 6.1 today. [...] follow-ups on file. documented in this encounter [facility] 08-16-2024 Instructions Monie Marcum NP - 08/16/2024 2:00 PM EDT Jardiance ordered Refer to dermatology documented in this encounter [facility] 07-28-2023 Evaluation note Encounter Date Diagnosis Assessment [...] fever. Patient/Parent verbalized understanding of treatment plan. [facility] Other Evaluation note* Diagnosis Skin lesion of face- Primary Unspecified disorder of skin and subcutaneous tissue Type 2 diabetes mellitus without complication, without long-term current use of insulin (CMS/HCC) Skin lesion of right leg Unspecified disorder of skin and subcutaneous tissue Type 2 diabetes mellitus with other specified complication (CMS/HCC) Hyperlipidemia, unspecified (CMS/HCC) documented in this encounter [facility]* Diagnosis Type 2 diabetes mellitus without complication, without long-term current use of insulin (CMS/HCC)- Primary Insulin resistance Other abnormal glucose documented in this encounter [facility] note* Diagnosis Melanocytic nevus of trunk- Primary Benign neoplasm of skin of trunk, except scrotum Dermatofibroma Benign neoplasm of skin, site unspecified Seborrheic keratosis, inflamed documented in this encounter [facility]Evaluation note* Diagnosis Type 2 diabetes mellitus without complication, without long-term current use of insulin (CMS/HCC)- Primary Primary hypertension (CMS/HCC) Unspecified essential hypertension documented in this encounter [facility] note* Diagnosis Type 2 diabetes mellitus without complication, without long-term current use of insulin (CMS/HCC)- Primary Primary hypertension (CMS/HCC) Unspecified essential hypertension Type 2 diabetes mellitus with other specified complication (CMS/HCC) Hyperlipidemia, unspecified (CMS/HCC) documented [facility] encounter [facility]* Diagnosis Well woman exam with routine gynecological exam Routine gynecological examination Breast cancer screening by mammogram Postmenopausal osteoporosis (CMS/HCC) Pharmacologic therapy Encounter for other specified aftercare Hot flashes Hot flashes due to menopause documented [facility] Narrative - Reported* Type Description Date Medical History diabetic Pheed Other Reason for referral (narrative)* Consultation (Routine) - Authorized Specialty Diagnoses / Procedures Referred By Contac t Referred To Contact Dermatology Diagnoses Skin lesion of face Skin lesion of right leg Procedures [facility] OFFICE/OUTPATIENT [facility] MDM 60 MINUTES Monie Marcum, SHERRY [address] [facility] [address] [place] [address] Lance Calabrese MD [address] [place] [address] Referral ID Status Reason Start Date Expiration Date Visits Requested Visits Authorized [id number] Authorized Specialty Services Required 02/12/2025 1 1 [facility] Summary Purpose Family History No Family History Records FoundNo Family History Records Found Advance Directives No Advanced Directives Records FoundNo Advanced Directives Records Found Additional Source Comments INFORMATION SOURCE (unrecogn ized section and content) DATE CREATED AUTHOR 03/22/2023 [facility] DATE CREATED AUTHOR AUTHOR'S ORGANIZ ATION 12/21/2024 [facility] EPIC REASON FOR VISIT (unrecogniz ed section and content) Reason Comments Diabetes look at skin lesions Pt wondering if she needs referral to dermatology Reason Comments Diabetes Hypertension Reason Comments Gynecologic Exam Care Teams (unrecognized sec tion and content) Public Health Worker Relationship Specialty Start Date End Date Uli Redding MD [address] [facility] [address] [place] [address] PCP - General Internal Medicine 08/01/23 Public Health Worker Relationship Specialty Start Date End Date Uli Redding MD [address] [facility] [address] [place] [address] PCP - General Internal Medicine 08/01/23 Public Health Worker Relationship Specialty Start Date End Date Uli Redding MD [address] [place] [address] PCP - General Internal Medicine 08/01/23 Public Health Worker Relationship Specialty Start Date End Date Uli Redding MD [address] [place] [address] PCP - General Internal Medicine 08/01/23 Public Health Worker Relationship Specialty Start Date End Date Uli Redding MD [address] [place] [address] PCP - General Internal Medicine 08/01/23 Public Health Worker Relationship Specialty Start Date End Date Uli Redding MD [address] [place] [address] PCP - General Internal Medicine 08/01/23 Public Health Worker Relationship Specialty Start Date End Date Uli Redding MD [address] [place] [address] PCP - General Internal Medicine 08/01/23 Public Health Worker Relationship Specialty Start Date End Date Uli Redding MD [address] [place] [address] PCP - General Internal Medicine 08/01/23 Public Health Worker Relationship Specialty Start Date End Date Uli Redding MD [address] [place] [address] PCP - General Internal Medicine 08/01/23 Public Health Worker Relationship Specialty Start Date End Date Uli Redding MD [address] [place] [address] PCP - General Internal Medicine 08/01/23 FOR [...] BE BASED ON THE PRIMARY CLINICAL RECORDS. [facility] [employer] [facility]. provides no warranty or guarantee of the accuracy or completeness of information in this document.
== END 2025-01-03 10:40 | disposition home or self-care (01) ==
LOC: MAMMO 10:39
PROVIDERS: PCP Internal Medicine; Visit Provider Physician Assistant
DX: Z12.31 Encounter for screening mammogram for malignant neoplasm of breast (principal); Z80.41 Family history of malignant neoplasm of ovary
CPT/HCPCS: 77063; 77067